=== PATIENT | female | born 1950 | race Hispanic/Latino ===

== ENCOUNTER 2017-05-31 06:35 | Day surgery (SDC) | payer BC ==
[2017-05-22 11:35] VITALS: BMI 32.6
[2017-05-31 07:24] LABS: BASO # 0.03 K/mm3 (0.0-2.0); BASO % 0.3 % (0.0-3.0); EOS # 0.2 (0.0-0.7); EOS % 2.4 % (1.5-5.0); GRAN # 5.61 (1.4-6.5); GRAN % 64.1 % (50.0-68.0); HEMOGLOBIN 13.4 g/dL (12.0-16.0); LYMPH # 2.3 (1.2-3.4); LYMPH % 25.7 % (22.0-35.0); MEAN CELL VOLUME 85.6 fl (80.0-105.0); MEAN CORPUSCULAR HEMOGLOBIN 28.9 pg (25.0-35.0); MEAN CORPUSCULAR HGB CONC 33.8 g/dl (31.0-37.0); MEAN PLATELET VOLUME 9.8 fl (7.0-11.0); MONO # 0.7 (0.1-0.6); MONO % 7.5 % (1.0-6.0); RBC 4.64 10^6/uL (3.5-6.1); RED CELL DISTRIBUTION WIDTH 13.1 % (11.5-14.5); WHITE BLOOD COUNT 8.8 10^3/ul (4.5-11.0)
[2017-05-31 07:30] LABS: INR 1.09 (0.93-1.08)
[2017-05-31] MEDS ORDERED: Lidocaine 2% Inj (20ml) ONE (07:34)
[2017-05-31 07:35] LABS: BLOOD UREA NITROGEN 17 mg/dL (7-21); CALCIUM 9.8 mg/dL (8.4-10.5); GFR AFRICAN-AMERICAN > 60; GFR NON-AFRICAN AMERICAN > 60
[2017-05-31] MEDS ORDERED: Midazolam 2 MG/2 ML VIAL ONE ×3 (07:35→10:34)
[2017-05-31] MEDS ORDERED: Iodixanol 320 MG/ML 200 ML BOTTLE IV ONE (07:35)
[2017-05-31] MEDS ORDERED: HEPARIN SODIUM/NS 2,000 ML IV ONE (07:35)
[2017-05-31] MEDS ORDERED: Iodixanol 320 MG/ML 100 ML BOTTLE IV ONE (07:35)
[2017-05-31] MEDS ORDERED: Iohexol 350mgl/ml 50 ML ONE (09:34)
[2017-05-31] MEDS ORDERED: Sodium Chloride 0.9% 1,000 ML IV SCH (11:30)
[2017-05-31] MEDS: Insulin Reg-MEDIUM-Coverage SC SCH ×3 (12:59→22:42)
--- NOTE | 2017-05-31 13:08 | CARDCATH ---
PROCEDURE DATE: 05/31/2017 HISTORY: The patient is a 66-year-old woman who presents with angina. A stress test was abnormal. Her cardiac risk factors include hypertension, hypercholesterolemia, and diabetes mellitus. There is a strong family history for CAD as well. PROCEDURES: Left heart catheterization with coronary arteriography, left ventriculogram followed by PTCA and stent of two lesions in the LAD as well as PTCA of a septal technical support associate. The right femoral artery was cannulated with a 6-American sheath. I performed moderate sedation which included the presence of an independent trained observer that assisted in monitoring the patient's level of consciousness and physiologic status. After administration of fentanyl and Versed, my intra-service time was greater than 30 minutes. FINDINGS: The findings on catheterization revealed a left ventricle that contracted normally. Estimated ejection fraction is 50%. Her coronary anatomy revealed a right dominant circulation. The RCA revealed a 70-80% stenosis in the proximal portion, followed by 80-90% stenosis in the septal technical support associate. The left main artery was unremarkable. The LAD revealed multiple critical lesions including a long 70% stenosis in the midportion, a 90% stenoses in the apex as well as diffuse disease throughout the vessel. The first diagonal vessel was subtotally occluded. The second diagonal vessel revealed a 80-90% stenosis in its proximal portion. The septal technical support associate revealed a 90% stenosis in its proximal portion. The circumflex artery and obtuse marginal branch revealed diffuse atherosclerosis without critical lesions. The patient was started on intravenous Angiomax. On the fluoroscopic guide, the guiding catheter was placed in the ostium of the left main artery. An 0.014 ATW wire was used to cross the multiple lesions in the LAD. A 2.0 balloon was utilized to pre-dilate the lesions. A 2.25 x 12 mm drug-eluting stent x2 were placed in the distal portion of the LAD. A 2.5 x a 15 mm drug-eluting stent was placed and deployed in the mid LAD. After balloon deflation removal, repeat coronary arteriography revealed a good result with no residual stenosis and JOSEPH III flow. The wire was then brought back and placed into the septal technical support associate. A 2.0 balloon was utilized to dilate the proximal portion of septal technical support associate. Repeat coronary arteriography revealed improvement of the lesion. No stent was placed. Manual compression will be used to close the femoral artery site. The patient tolerated the procedure well. IMPRESSION: In summary, the procedure revealed: 1. Multivessel coronary artery disease. 2. Successful percutaneous transluminal coronary angioplasty and stent of multiple lesions in the left anterior descending artery with drug-eluting stents. 3. Percutaneous transluminal coronary angioplasty of septal technical support associate with improvement of the lesion. 4. Left ventricular function is preserved. PLAN: Given these findings, the patient will need to remain on aspirin and Plavix with Plavix for at least a year and undergo a strict cardiac risk reduction program. We will bring the patient back in 1 week for PTCA and stent of two lesions in the RCA. Andi Pearce MD
--- NOTE | 2017-05-31 13:19 | HP ---
HISTORY OF PRESENT ILLNESS: The patient is a 66 year old woman with a past medical history of hypertension and noninsulin dependent diabetes mellitus who presented for electively scheduled cardiac catheterization after undergoing an abnormal nuclear stress test which was performed due to an abnormal EKG as part of a preoperative clearance for ophthalmologic surgery. The patient was evaluated by her PMD for preoperative clearance prior to ophthalmologic surgery secondary to right eye macular hemorrhage and was found to have an abnormal EKG. She was referred to Dr. Pearce for nuclear stress testing and had an abnormal study demonstrating reversible anterior/anteroseptal defects suspicious of ischemia. As such she was scheduled for cardiac catheterization which disclosed multivessel disease. She underwent successful stenting of the LAD lesions and was subsequently transferred to the telemetry estevez for continued postcardiac catheterization care. PAST MEDICAL HISTORY: As per HPI, also anxiety disorder. PAST SURGICAL HISTORY: Right hammertoe repair and right toe amputation. ALLERGIES: NO KNOWN DRUG ALLERGIES. MEDICATIONS: Glipizide 5 mg p.o. daily. FAMILY HISTORY: Noncontributory. SOCIAL HISTORY: The patient denies any toxic habits. REVIEW OF SYSTEMS: Negative for chest pain, palpitation, exertional dyspnea, orthopnea, claudication, or lower extremity edema. PHYSICAL EXAMINATION: VITAL SIGNS: Temperature 97, pulse 100, blood pressure 146/82, respiratory rate 20, and oxygen saturation 97% on room air. GENERAL: No apparent distress. HEENT: PERRLA. EOMI. No scleral icterus. No conjunctival pallor. NECK: No JVD. No bruits. LUNGS: Clear to auscultation. CARDIOVASCULAR: Regular rate and rhythm. Normal S1 and S2. ABDOMEN: Normoactive bowel sounds. Soft, nontender, and nondistended. EXTREMITIES: No edema. Cardiac catheterization site appears clean, dry, and intact with no hematoma or femoral bruits. NEUROLOGIC: Awake, alert, and oriented x3. No focal motor deficits. LABORATORY DATA: CBC reviewed and unremarkable. CMP reviewed and unremarkable. ASSESSMENT: The patient is a 66 year old woman with hypertension and noninsulin dependent diabetes mellitus who presented for electively scheduled cardiac catheterization after undergoing abnormal nuclear stress test which was obtained as part of a preoperative workup for scheduled ophthalmologic surgery after she was noted to have an abnormal EKG who is now s/p PCI with DANILO stent placement to the LAD lesions. PLAN: 1. Multivessel CAD s/p PCI with DANILO stent placement. Input from Dr. Pearce noted and greatly appreciated. Continue with postcardiac catheterization care as per Dr. Pearce. The patient will return for staged PTCA of the remaining lesions. She will likely need to enroll in a cardiac risk reduction program. Continue ASA 81 mg p.o. daily, Lipitor 40 mg p.o. daily, Plavix 75 mg p.o. daily and Lopressor 25 mg p.o.b.i.d. 2. Hypertension. Continue metoprolol 25 mg b.i.d. 3. Noninsulin dependent diabetes mellitus. We will start medium dose insulin sliding scale. The patient is on Glipizide 5 mg p.o. daily at home however we will hold this given that she is status post cardiac catheterization and we want to minimize the risks of hypoglycemia which may be precipitated in the setting of potential contrast nephropathy and concurrent use of oral glycemic agents. We will start the patient on medium dose insulin sliding scale and monitor fingerstick before meals and at bedtime. 4. Prophylaxis. GI prophylaxis is not indicated as the patient is eating. Continue with SCDs for DVT prophylaxis. CODE STATUS: Full Code. Atul Mckeon MD MTDMaria Teresa
--- NOTE | 2017-05-31 16:56 | CARD ---
APPROVED REPORT EKG Measurement Heart [id number] <Conclusion> Normal sinus rhythm Nonspecific ST and T wave abnormality Prolonged QT Abnormal ECG
--- NOTE | 2017-05-31 17:06 | CARD ---
APPROVED REPORT EKG Measurement Heart [id number] FL [id number] <Conclusion> Normal sinus rhythm Inferior infarct, age undetermined Anterior infarct, age undetermined Abnormal ECG
[2017-05-31] MEDS: PrednisoLONE 1% Opht Susp(5 ml) OD SCH ×2 (17:49→22:37)
[2017-05-31] MEDS: CYCLOPENTOLATE 1% OD SCH (17:50)
[2017-05-31] MEDS: Bacitracin Ointment 30 GM TUBE TOP SCH (17:51)
[2017-05-31] MEDS ORDERED: PREDNISOLONE AC 1% OD SCH (18:00)
[2017-06-01 06:11] VITALS: RESP 19; TEMP 98.7; O2SAT 98
[2017-06-01 06:19] LABS: BASO # 0.01 K/mm3 (0.0-2.0); BASO % 0.1 % (0.0-3.0); EOS # 0.1 (0.0-0.7); EOS % 1.2 % (1.5-5.0); GRAN # 6.91 (1.4-6.5); GRAN % 71.9 % (50.0-68.0); HEMOGLOBIN 11.7 g/dL (12.0-16.0); LYMPH % 20.6 % (22.0-35.0); MEAN CELL VOLUME 88.1 fl (80.0-105.0); MEAN CORPUSCULAR HEMOGLOBIN 28.9 pg (25.0-35.0); MEAN CORPUSCULAR HGB CONC 32.8 g/dl (31.0-37.0); MEAN PLATELET VOLUME 10.1 fl (7.0-11.0); MONO # 0.6 (0.1-0.6); MONO % 6.2 % (1.0-6.0); RBC 4.05 10^6/uL (3.5-6.1); RED CELL DISTRIBUTION WIDTH 13.4 % (11.5-14.5); WHITE BLOOD COUNT 9.6 10^3/ul (4.5-11.0)
[2017-06-01 06:39] LABS: BLOOD UREA NITROGEN 22 mg/dL (7-21); CALCIUM 8.9 mg/dL (8.4-10.5); GFR AFRICAN-AMERICAN > 60; GFR NON-AFRICAN AMERICAN > 60
[2017-06-01] MEDS: Insulin Reg-MEDIUM-Coverage SC SCH (08:05)
[2017-06-01] MEDS: Bacitracin Ointment 30 GM TUBE TOP SCH (09:45)
[2017-06-01] MEDS: PrednisoLONE 1% Opht Susp(5 ml) OD SCH (09:45)
--- NOTE | 2017-06-01 09:47 | PN ---
SUBJECTIVE: The patient was seen and examined at bedside on the telemetry estevez. No acute events overnight. She remains afebrile, hemodynamically stable and chest pain free s/p her cardiac catheterization with stent placement. This morning she feels well, offers no complaints and is looking forward to going home. OBJECTIVE: VITAL SIGNS: Temperature 98.7, pulse 90, blood pressure 132/64, respiratory rate 18, and oxygen saturations 98% on room air. GENERAL: No apparent distress. HEENT: PERRL. EOMI. No scleral icterus. No conjunctival pallor. NECK: No JVD. No bruits. LUNGS: Clear to auscultation. CARDIOVASCULAR: Regular rate and rhythm. Normal S1 and S2. ABDOMEN: Normoactive bowel sounds. Soft, nontender, and nondistended. EXTREMITIES: No edema. Cardiac catheterization site appears clean, dry, and intact with no hematoma or femoral bruits. NEUROLOGIC: Awake, alert, and oriented x3. No focal motor deficits. LABORATORY DATA: CBC reviewed and unremarkable. CMP reviewed and unremarkable. ASSESSMENT: The patient is a 66 year old woman with hypertension and non- insulin-dependant diabetes mellitus who presented for electively scheduled cardiac catheterization after undergoing abnormal nuclear stress test which was obtained as part of a preoperative workup for scheduled ophthalmologic surgery after she was noted to have an abnormal EKG who is now s/p PCI with DANILO stent placement to the LAD lesions. PLAN: 1. Multivessel CAD s/p PCI with DANILO stent placement. Continue with postcatheterization care as per Dr. Pearce. The patient will return to staged PTCA of the remaining lesions. She will likely need to enroll in any cardiac risk reduction program. Continue Aspirin 81 mg p.o. daily, Lipitor 40 mg p.o. daily, Plavix 75 mg p.o. daily, and Lopressor 25 mg p.o. b.i.d. 2. Hypertension. Continue metoprolol 25 mg p.o. b.i.d. 3. Ktf-zhvzqoo-nhstiwqik diabetes mellitus. Continue with medium dose insulin sliding scale for coverage and resume Glipizide 5 mg p.o. daily. 4. Anxiety. Resume Xanax 0.25 mg p.o. daily. 5. Prophylaxis. GI prophylaxis not indicated as this patient is eating. DVT prophylaxis is not indicated as this patient is ambulatory. 6. Disposition: The patient for discharge home today. CODE STATUS: Full status. Atul Mckeon MD MTDD
[2017-06-01 09:51] VITALS: BP 141/69; PULSE 88
[2017-06-01] MEDS: CYCLOPENTOLATE 1% OD SCH (09:52)
--- NOTE | 2017-06-01 10:06 | PN ---
DATE: 06/01/2017 CARDIOLOGY FOLLOWUP SUBJECTIVE: The patient had a Abreu placed yesterday because of her inability to urinate. OBJECTIVE: VITAL SIGNS: Blood pressure is 132/64, heart rate in the 80s. NECK: Negative JVD. LUNGS: Without rales. HEART: S1, S2. EXTREMITIES: Without edema. GROINS: The right groin site has extensive taping on it. LABORATORY DATA: Hemoglobin is 11.7. Chemistries: BUN and creatinine are unremarkable. IMPRESSION: 1. Stable post percutaneous transluminal coronary angioplasty and stent of multiple lesions in the left anterior descending artery. 2. Diabetes mellitus. 3. Hypercholesterolemia. 4. Multivessel coronary artery disease. Given these findings, we will discontinue the Abreu catheter today. We will ambulate the patient and discharge to home. The patient is scheduled for a stage percutaneous transluminal coronary angioplasty of the right coronary artery next week. Andi Pearce MD
--- NOTE | 2017-06-01 13:08 | PN ---
DATE: 06/01/2017 CARDIOLOGY FOLLOWUP NOTE SUBJECTIVE: The patient is chest pain free. PHYSICAL EXAMINATION: VITAL SIGNS: Blood pressure is 132/64 with the heart rate in the 80s. NECK: Negative JVD. LUNGS: Without rales. HEART: Reveals S1 and S2. EXTREMITIES: Without edema. SKIN: The right groin site is stable. There is excoriation of the skin from the . LABORATORY DATA: Hemoglobin is 11.7. Chemistries, BUN and creatinine are unremarkable. IMPRESSION 1. Stable post percutaneous transluminal coronary angioplasty and stent of multiple lesions in the left anterior descending. 2. Coronary artery disease. 3. Diabetes mellitus. 4. Hypercholesterolemia. 5. Obesity. PLAN: Given these findings, the patient's cardiac status is stable for discharge. Ointment has been placed on the skin excoriation. We will DC the Abreu catheter. We will ambulate the patient and discharge today. Andi Pearce MD
--- NOTE | 2017-06-08 02:27 | DS ---
ADMITTING DIAGNOSIS: Unstable angina. DISCHARGE DIAGNOSES: CAD s/p PCI with DANILO stent placement to the LAD. SECONDARY DIAGNOSES: Type 2 diabetes mellitus, hypertension and anxiety. CONSULTATIONS: Dr. Pearce (Cardiology). IMAGING STUDIES: None. PROCEDURES: Cardiac catheterization which demonstrated multivessel CAD with placement of DANILO to LAD and septal hand button splitter. HISTORY OF PRESENT ILLNESS: The patient is a 66 year old woman with past medical history of hypertension and [id number] diabetes mellitus who presented for electively scheduled cardiac catheterization after undergoing an abnormal nuclear stress test which was performed due to an abnormal EKG as part of a preoperative clearance for ophthalmologic surgery. The patient was evaluated by her PMD for preop clearance prior to her scheduled ophthalmologic surgery for repair of right eye macular hemorrhage, during which time she was found to have an abnormal EKG. She was referred to Dr. Pearce for nuclear stress testing and had an abnormal study demonstrating reversible anterior/anteroseptal defect suspicious for ischemia. She was subsequently scheduled for cardiac catheterization which demonstrating multivessel disease. She underwent successful stenting of the LAD lesions and was transferred to the telemetry estevez for postcardiac catheterization care. HOSPITAL COURSE: Her postprocedure course was uncomplicated and no complications were noted. She remained afebrile, hemodynamically stable and chest pain free over the course of the following 24 hours and the following day she was ambulating around the telemetry estevez with no cardiopulmonary symptoms. After evaluation by Dr. Pearce, she was cleared for discharge to home. CONDITION: Good, improved. DISPOSITION: Home. DISCHARGE MEDICATIONS: Aspirin 81 mg p.o. daily, Plavix 75 mg p.o. daily, Lipitor 40 mg p.o. daily, Metoprolol 25 mg p.o. b.i.d., Glipizide 5 mg p.o. daily and Xanax 0.25 mg p.o. daily. DISCHARGE INSTRUCTIONS: The patient was advised to adhere to postcardiac catheterization instructions as per Dr. Pearce. The patient was also advised that if she develops any bleeding , edema, erythema or discomfort at a cardiac catheterization site to present to her PMD or to the nearest ED immediately. She was also advised that if she develops any chest pain, palpitations or dyspnea to present to her PMD or to the nearest ED immediately. FOLLOWUP: The patient is to follow up with her PMD within 1 week of discharge. The patient is to follow up with Dr. Pearce as scheduled. Atul Mckeon MD [facility]
== END 2017-06-01 12:16 | disposition home or self-care (01) ==
LOC: CATH 06:35 → 2RSO 11:49 → UNDOADMIN 11:49 → UNDODISIN 06-01 12:14 → CATH 06-01 12:16
PROVIDERS: ATTEND Internal Medicine Cardiovascular Disease
DX: I25.110 Atherosclerotic heart disease of native coronary artery with unstable angina pectoris (principal); E11.9 Type 2 diabetes mellitus without complications; E66.9 Obesity, unspecified; E78.00 Pure hypercholesterolemia, unspecified; Z95.5 Presence of coronary angioplasty implant and graft; R94.39 Abnormal result of other cardiovascular function study; I10 Essential (primary) hypertension; Z68.33 Body mass index [BMI] 33.0-33.9, adult
CPT/HCPCS: 36415 ×2; 80048 ×2; 82948 ×2; 85025 ×2; 85610; 85730; 86850; 86900; 93005; 93458; 99152; 99153; C1725; C1769 ×2; C1874 ×2; C1887; C2629; C9600; J0360; J0583; J1644; J2250; J3010; J7040 ×2; Q9967 ×2

== ENCOUNTER 2017-06-07 06:11 | Day surgery (SDC) | payer BC ==
[2017-05-22 11:35] VITALS: BMI 32.6
[2017-06-07] MEDS ORDERED: Iodixanol 320 MG/ML 200 ML BOTTLE IV ONE (06:51)
[2017-06-07] MEDS ORDERED: Phenylephrine 10 mg/ml Inj ONE (06:51)
[2017-06-07] MEDS ORDERED: Lidocaine 2% Inj (20ml) ONE (06:51)
[2017-06-07] MEDS ORDERED: Iohexol 350mgl/ml 50 ML ONE (06:51)
[2017-06-07] MEDS ORDERED: Nitroglycerin 50mg in D5W 0 MG/0 ML BOTTLE IV ONE (06:51)
[2017-06-07] MEDS ORDERED: Iodixanol 320 MG/ML 100 ML BOTTLE IV ONE (06:51)
[2017-06-07] MEDS ORDERED: HEPARIN SODIUM/NS 2,000 ML IV ONE (06:51)
[2017-06-07 07:01] LABS: BASO # 0.03 K/mm3 (0.0-2.0); BASO % 0.4 % (0.0-3.0); EOS # 0.3 (0.0-0.7); EOS % 3.7 % (1.5-5.0); GRAN # 5.32 (1.4-6.5); GRAN % 67.1 % (50.0-68.0); HEMOGLOBIN 12.7 g/dL (12.0-16.0); LYMPH # 1.7 (1.2-3.4); LYMPH % 20.9 % (22.0-35.0); MEAN CELL VOLUME 86.6 fl (80.0-105.0); MEAN CORPUSCULAR HEMOGLOBIN 29.8 pg (25.0-35.0); MEAN CORPUSCULAR HGB CONC 34.4 g/dl (31.0-37.0); MEAN PLATELET VOLUME 9.8 fl (7.0-11.0); MONO # 0.6 (0.1-0.6); MONO % 7.9 % (1.0-6.0); RBC 4.26 10^6/uL (3.5-6.1); RED CELL DISTRIBUTION WIDTH 12.9 % (11.5-14.5); WHITE BLOOD COUNT 7.9 10^3/ul (4.5-11.0)
[2017-06-07 07:11] LABS: BLOOD UREA NITROGEN 18 mg/dL (7-21); CALCIUM 9.6 mg/dL (8.4-10.5); GFR AFRICAN-AMERICAN > 60; GFR NON-AFRICAN AMERICAN > 60; HDL CHOLESTEROL 38 mg/dL (29-60)
[2017-06-07 07:20] LABS: INR 1.11 (0.93-1.08); PROTHROMBIN TIME 12.2 SECONDS (9.4-12.5)
[2017-06-07 07:21] LABS: LDL CHOLESTEROL 74 mg/dL (0-129)
[2017-06-07] MEDS ORDERED: Midazolam 2 MG/2 ML VIAL ONE (08:08)
[2017-06-07] MEDS ORDERED: Sodium Chloride 0.9% 1,000 ML IV SCH (09:15)
[2017-06-07 10:47] LABS: BLOOD UREA NITROGEN 17 mg/dL (7-21); CALCIUM 9.2 mg/dL (8.4-10.5); GFR AFRICAN-AMERICAN > 60; GFR NON-AFRICAN AMERICAN > 60
[2017-06-07] MEDS ORDERED: Bacitracin 500 Units/gm Oint Foilpak UD ONE (11:30)
[2017-06-07] MEDS ORDERED: TraMADol/Apap 37.5/325 mg Tab PO STA (13:05)
--- NOTE | 2017-06-07 15:07 | CARD ---
APPROVED REPORT EKG Measurement Heart [id number] [place] [id number] [id number] <Conclusion> Normal sinus rhythm T wave abnormality, consider lateral ischemia Abnormal ECG
--- NOTE | 2017-06-07 15:15 | CARDCATH ---
PROCEDURE DATE: 06/07/2017 CARDIAC CATHETERIZATION AND PTCA HISTORY: The patient is a 66-year-old woman who presents for PTCA of her RCA. The patient has a documented multivessel CAD and she underwent of multiple stents placed approximately 1 week ago and presents for stage PTCA of the RCA. The patient's cardiac risk factors includes hypertension, diabetes mellitus, hypercholesterolemia, sedentary lifestyle, as well as obesity. PROCEDURES: Coronary arteriography followed by PTCA and stent of 3 lesions in the RCA with drug-eluting stents. The left femoral artery was cannulated with a 6-Japanese sheath. There were no complications. I performed moderate sedation, which included the presence of an independent trained observer that assisted in monitoring the patient's level of consciousness and physiologic status. After administration of Versed and fentanyl, my intra-service time was 30 minutes. The findings on catheterization revealed a right dominant circulation. The RCA revealed a 70% stenoses in the proximal portion, 80% stenosis in the mid RCA, as well as 90% stenosis in the PDA. The left main artery was unremarkable. The were 3 stents placed in the LAD. The mid LAD stent was patent and provided good antegrade flow. The distal LAD stent was patent and provided good antegrade flow. The apical stent that was placed was occluded. There was no restriction of flow down the arteries. The diagonal vessels revealed were diffusely diseased and small vessel. The patient was started on intravenous Angiomax. The PRU measurement was performed. The patient is reactive to Plavix. Under fluoroscopic guide, the guiding catheter was placed in the ostium of the RCA. An 0.014 ATW wire was used across the 3 lesions. A 2.0 balloon was utilized to dilate the PDA lesion. A 2.25 x 12 mm drug-eluting stent was placed in the PDA, a 3.5 x 12 mm drug-eluting stent was placed and deployed in the mid RCA lesion. A 4.0 x 12 mm drug-eluting stent was placed in the proximal lesion. Repeat coronary arteriography revealed an excellent result with no residual stenosis and JOSEPH III flow. Manual compression was used to close the left femoral artery site. The patient tolerated the procedure well. In summary, the procedure was successful with PTCA and stent of 3 lesions in the RCA with drug-eluting stents. Cardiac catheterization revealed patent stents in the LAD x2 with an occluded stent in the distal apical portion of the LAD, which was diffusely diseased vessel and small in nature. PRU measurement revealed a the patient is sensitive to Plavix. Given these findings, the patient will need to remain on aspirin indefinitely and Plavix for at least a year and undergo a strict cardiac risk reduction program. I have discussed this with the family and enrolled him in a cardiac risk reduction program. Andi Pearce MD
[2017-06-07 17:39] VITALS: RESP 18
--- NOTE | 2017-06-07 19:37 | HP ---
HISTORY OF PRESENT ILLNESS: The patient is a 66 year old woman with hypertension, dry-vyyaoch-pnqjcpehb diabetes mellitus and newly diagnosed multivessel CAD who returned for electively scheduled staged PTCA of the RCA. The patient was taken last week to the cardiac catheterization lab with Dr. Pearce after undergoing an abnormal nuclear stress test as part of a preoperative workup and underwent successful PCI with multiple stent placement to the LAD and septal veterinary hospital attendant lesions. She was scheduled to return for scheduled PTCA of the RCA lesion. The patient was again taken successfully to the cardiac catheterization lab with Dr. Pearce where she underwent successful PCI with DANILO stent placement to the RCA. She was subsequently transferred to the telemetry estevez for continued post-catheterization care. PAST MEDICAL HISTORY: As per HPI, also anxiety disorder. PAST SURGICAL HISTORY: As per HPI, also right hammertoe repair, right toe amputation and repair of right macular hemorrhage. ALLERGIES: NO KNOWN DRUG ALLERGIES. MEDICATIONS: Aspirin 81 mg p.o. daily, Plavix 75 mg p.o. daily, Lipitor 40 mg p.o. daily, Metoprolol 25 mg p.o. b.i.d., Glipizide 5 mg p.o. daily, and Xanax 0.25 mg p.o. daily. FAMILY HISTORY: Noncontributory. SOCIAL HISTORY: The patient denies any toxic habits. REVIEW OF SYSTEMS: A 14-point review of systems is negative except as per HPI. PHYSICAL EXAMINATION: VITAL SIGNS: Temperature 98.1, pulse 65, blood pressure 130/67, respiratory rate 18, and oxygen saturation 100% on room air. GENERAL: No apparent distress. HEENT: PERRL. EOMI. No scleral icterus. No conjunctival pallor. NECK: No JVD. No bruits. LUNGS: Clear to auscultation. CARDIOVASCULAR: Regular rate and rhythm. Normal S1 and S2. ABDOMEN: Normoactive bowel sounds, soft, nontender, and nondistended. EXTREMITIES: No edema. Cardiac catheterization site appears clean, dry, and intact with no hematoma or femoral bruits. NEUROLOGIC: Awake, alert, and oriented x3. No focal motor deficits. LABORATORY DATA: CBC reviewed and unremarkable. CMP reviewed and unremarkable. ASSESSMENT: The patient is a 66 year old woman with hypertension, non-insulin- dependent diabetes mellitus and newly diagnosed multivessel CAD who returned for electively scheduled staged PTCA of the RCA who is now s/p PCI with DANILO stent placement to the RCA. PLAN: 1. Multivessel CAD s/p PCI with DANILO stent placement. Input from Dr. Pearce noted and greatly appreciated. Continue postcardiac catheterization care as per Dr. Pearce. Continue Aspirin 81 mg p.o. daily, Lipitor 40 mg p.o. daily, Plavix 75 mg p.o. daily and Metoprolol 25 mg p.o. b.i.d. 2. Hypertension. Continue Metoprolol 25 mg p.o. b.i.d. 3. Jco-ollqwok-nfhlzlsjl diabetes mellitus. Resume Glipizide 5 mg p.o. daily. 4. Anxiety disorder. Resume Xanax 0.25 mg p.o. daily. 5. Prophylaxis. GI prophylaxis is not indicated as the patient is eating. Continue with SCDs for DVT prophylaxis. CODE STATUS: Full Code. Atul Mckeon MD MTDD
[2017-06-07] MEDS ORDERED: DiphenhydrAMINE 50 mg/ml Inj IVP STA (23:27)
--- NOTE | 2017-06-07 23:41 | CP.PCM.PN ---
Subjective - Date & Time of Evaluation Date of Evaluation: 06/07/17 Time of Evaluation: 23:38 - Subjective Subjective: Patient was seen for itching and rash. Denies wheezing, sob. Has no history of allergy to medications, food or any other substance. States that before the procedure some lotion was applied to skin wearing latex glove, latex glove may have anything to do with itching. Did not receive any unusual food or medications. Pertinent medical record was reviewed. This 66 year old white woman was admitted for PTCA of RCA. Has PMH of HTN,NIDDM,CAD, anxiety, hammer toe repair, right toe amputation, repair of macular hemorrhage. Objective - Vital Signs/Intake and Output Vital Signs (last 24 hours): Temp Pulse Resp BP Pulse Ox 97.3 F L 74 18 120/62 100 06/07/17 17:39 06/07/17 18:00 06/07/17 17:39 06/07/17 17:39 06/07/17 07:00 - Medications Medications: Current Medications Alprazolam (Xanax) 0.25 mg PO DAILY [facility] PRN Reason: Protocol Stop: 06/15/17 10:01 Aspirin (Ecotrin) 81 mg PO DAILY [facility] Last Admin: 06/07/17 09:38 Dose: Not Given Atorvastatin Calcium (Lipitor) 40 mg PO DIN [facility] Last Admin: 06/07/17 17:29 Dose: 40 mg Clopidogrel Bisulfate (Plavix) 75 mg PO DAILY [facility] Last Admin: 06/07/17 09:39 Dose: Not Given Glipizide (Glucotrol Xl) 5 mg PO DAILY [facility] Metoprolol Tartrate (Lopressor) 25 mg PO BID [facility] Last Admin: 06/07/17 17:29 Dose: 25 mg - Labs Labs: 06/07/17 06:35 06/07/17 10:15 PT 12.2 SECONDS (9.4-12.5) 06/07/17 06:35 INR 1.11 (0.93-1.08) H 06/07/17 06:35 APTT 27.0 Seconds (25.1-36.5) 06/07/17 06:35 Most Recent Lab Values WBC 7.9 10^3/ul (4.5-11.0) 06/07/17 06:35 RBC 4.26 10^6/uL (3.5-6.1) 06/07/17 06:35 Hgb 12.7 g/dL (12.0-16.0) 06/07/17 06:35 Hct 36.9 % (36.0-48.0) 06/07/17 06:35 MCV 86.6 fl (80.0-105.0) 06/07/17 06:35 MCH 29.8 pg (25.0-35.0) 06/07/17 06:35 MCHC 34.4 g/dl (31.0-37.0) 06/07/17 06:35 RDW 12.9 % (11.5-14.5) 06/07/17 06:35 Plt Count 218 10^3/uL (120.0-450.0) 06/07/17 06:35 MPV 9.8 fl (7.0-11.0) 06/07/17 06:35 Gran % 67.1 % (50.0-68.0) 06/07/17 06:35 Lymph % (Auto) 20.9 % (22.0-35.0) L 06/07/17 06:35 [place] % (Auto) 7.9 % (1.0-6.0) H 06/07/17 06:35 Eos % (Auto) 3.7 % (1.5-5.0) 06/07/17 06:35 Baso % (Auto) 0.4 % (0.0-3.0) 06/07/17 06:35 Gran # 5.32 (1.4-6.5) 06/07/17 06:35 Lymph # 1.7 (1.2-3.4) 06/07/17 06:35 [place] # 0.6 (0.1-0.6) 06/07/17 06:35 Eos # 0.3 (0.0-0.7) 06/07/17 06:35 Baso # 0.03 K/mm3 (0.0-2.0) 06/07/17 06:35 PT 12.2 SECONDS (9.4-12.5) 06/07/17 06:35 INR 1.11 (0.93-1.08) H 06/07/17 06:35 APTT 27.0 Seconds (25.1-36.5) 06/07/17 06:35 Sodium 141 mmol/L (132-148) 06/07/17 10:15 Potassium 5.1 mmol/L (3.6-5.0) H 06/07/17 10:15 Chloride 103 mmol/L (98-107) 06/07/17 10:15 Carbon Dioxide 32 mmol/L (21-33) 06/07/17 10:15 Anion Gap 12 (10-20) 06/07/17 10:15 BUN 17 mg/dL (7-21) 06/07/17 10:15 Creatinine 0.7 mg/dl (0.7-1.2) 06/07/17 10:15 Est GFR ( Amer) > 60 06/07/17 10:15 Est GFR (Non-Af Amer) > 60 06/07/17 10:15 Random Glucose 203 mg/dL (70-110) H 06/07/17 10:15 Calcium 9.2 mg/dL (8.4-10.5) 06/07/17 10:15 Triglycerides 122 mg/dL (35-160) 06/07/17 06:35 Cholesterol 142 mg/dL (130-200) 06/07/17 06:35 LDL Cholesterol Direct 74 mg/dL (0-129) 06/07/17 06:35 HDL Cholesterol 38 mg/dL (29-60) 06/07/17 06:35 Blood Type A POSITIVE 06/07/17 06:35 Antibody Screen Negative 06/07/17 06:35 BBK History Checked Patient has bt 06/07/17 06:35 - Constitutional Appears: Well, No Acute Distress - Head Exam Head Exam: ATRAUMATIC, NORMAL INSPECTION, NORMOCEPHALIC - Eye Exam Eye Exam: Normal appearance - ENT Exam ENT Exam: Normal External Ear Exam - Neck Exam Neck Exam: Normal Inspection - Respiratory Exam Respiratory Exam: NORMAL BREATHING PATTERN - Cardiovascular Exam Cardiovascular Exam: absent: JVD - GI/Abdominal Exam GI & Abdominal Exam: absent: Distended - Rectal Exam Rectal Exam: Deferred - Exam Additional comments: Deferred. - Extremities Exam Extremities Exam: Normal Inspection - Back Exam Back Exam: NORMAL INSPECTION - Neurological Exam Neurological Exam: Alert, Awake, Oriented x3 - Psychiatric Exam Psychiatric exam: Normal Affect, Normal Mood - Skin Additional comments: Back , arms, Assessment and Plan - Assessment and Plan (Free Text) Assessment: Itching. Skin rash. CAD. HTN. AIDDM. Anxiety. Plan: Benadryl 25 mg IV stat. Continue present management.
[2017-06-08 05:19] LABS: BASO # 0.02 K/mm3 (0.0-2.0); BASO % 0.2 % (0.0-3.0); EOS # 0.4 (0.0-0.7); EOS % 3.6 % (1.5-5.0); GRAN # 7.25 (1.4-6.5); GRAN % 72.6 % (50.0-68.0); HEMOGLOBIN 11.3 g/dL (12.0-16.0); LYMPH # 1.7 (1.2-3.4); LYMPH % 16.7 % (22.0-35.0); MEAN CORPUSCULAR HEMOGLOBIN 28.9 pg (25.0-35.0); MEAN CORPUSCULAR HGB CONC 32.8 g/dl (31.0-37.0); MEAN PLATELET VOLUME 10.1 fl (7.0-11.0); MONO # 0.7 (0.1-0.6); MONO % 6.9 % (1.0-6.0); RBC 3.91 10^6/uL (3.5-6.1); RED CELL DISTRIBUTION WIDTH 13.2 % (11.5-14.5)
[2017-06-08 06:10] LABS: ALB/GLOB RATIO 1.1 (1.1-1.8); ALBUMIN 3.3 g/dL (3.0-4.8); ALT/SGPT 33 U/L (7-56); AST/SGOT 19 U/L (14-36); BLOOD UREA NITROGEN 20 mg/dL (7-21); CALCIUM 8.8 mg/dL (8.4-10.5); GFR AFRICAN-AMERICAN > 60; GFR NON-AFRICAN AMERICAN > 60
[2017-06-08] MEDS ORDERED: DiphenhydrAMINE 50 mg/ml Inj IVP STA (06:17)
[2017-06-08 06:20] VITALS: BP 127/58; TEMP 97.8; O2SAT 98
--- NOTE | 2017-06-08 09:02 | PN ---
SUBJECTIVE: The patient was seen and examined at bedside on the telemetry estevez. No acute events overnight. She remains afebrile and hemodynamically stable status post her cardiac catheterization with placement of drug-eluting stent to the RCA lesion. This morning she reports a rash to her entire body with pruritus. Reportedly she developed a similar rash, albeit smaller, after her previous catheterization thus raising the suspicion for contrast allergy. She denies dyspnea, stridor, dysphagia or odynophagia. OBJECTIVE: VITAL SIGNS: Temperature 97.8, pulse 81, blood pressure 127/58, respiratory rate 18, and oxygen saturation 98% on room air. GENERAL: No apparent distress. HEENT: PERRL, EOMI. No scleral icterus. No conjunctival pallor. NECK: No JVD, no bruits. LUNGS: Clear to auscultation. CARDIOVASCULAR: Regular rate and rhythm. Normal S1 and S2. ABDOMEN: Normoactive bowel sounds. Soft, nontender, and nondistended. EXTREMITIES: No edema. NEUROLOGIC: Awake, alert, and oriented x3. No focal motor deficits. SKIN: Erythematous raised rash on the patient's torso and extremities. LABORATORY DATA: CBC reviewed and unremarkable. CMP reviewed and unremarkable. ASSESSMENT: The patient is a 66 year old woman with hypertension, non-insulin- dependent diabetes mellitus and newly diagnosed multivessel coronary artery disease who returned for electively scheduled staged PTCA of the RCA who is now status post PCI with DANILO stent placement to the RCA. PLAN: 1. Multivessel CAD s/p PCI with DANILO placement. Continue post catheterization care as per Dr. Pearce. Continue Aspirin 81 mg p.o. daily, Lipitor 40 mg p.o. daily, Plavix 75 mg p.o. daily and Metoprolol 25 mg p.o. b.i.d. 2. Morbilliform rash, consider etiology secondary to IV contrast. The patient received Benadryl overnight. We will administer Solu Medrol 60 mg IV x1. 3. Hypertension: Continue Metoprolol 25 mg p.o. b.i.d. 4. Nlu-fdjdmeq-zefqetefa diabetes mellitus. Continue Glipizide 5 mg p.o. daily. 5. Anxiety disorder: Continue Xanax 0.25 mg p.o. daily. 6. Prophylaxis: GI prophylaxis not indicated as the patient is eating. DVT prophylaxis not indicated as the patient is ambulatory. 7. Disposition: The patient will be discharged to home today. CODE STATUS: FULL CODE. Atul Mckeon MD [facility]INA
[2017-06-08] MEDS ORDERED: GlipiZIDE 5 mg SR Tab PO SCH (10:00)
[2017-06-08 10:20] VITALS: PULSE 80
--- NOTE | 2017-06-08 11:29 | PN ---
DATE: 06/08/2017 CARDIOLOGY FOLLOWUP SUBJECTIVE: The patient is ambulating without symptoms. PHYSICAL EXAMINATION: VITAL SIGNS: Blood pressure 127/58, heart rate in the 80s. NECK: Negative JVD. LUNGS: Without rales. HEART: S1, S2. EXTREMITIES: Without edema. The groin sites diffusely erythematous, no hematoma. No ecchymoses noted. LABORATORY DATA: Hemoglobin is 11.3, white count is 10, glucose is 171. IMPRESSION: 1. Status post percutaneous transluminal coronary angioplasty and stent, multivessels. 2. Coronary artery disease. 3. Diabetes mellitus. 4. Hypercholesterolemia. 5. Hypertension. PLAN: Given these findings, the patient's rash may be secondary to IV contrast. She received Benadryl as well as Solu-Medrol overnight. The patient is doing well. From a cardiac perspective, the patient can be discharged. Followup instructions have been given to the patient. She has been enrolled in cardiac rehab.. Andi Pearce MD
--- NOTE | 2017-06-08 12:22 | CARD ---
APPROVED REPORT EKG Measurement Heart [id number] <Conclusion> Normal sinus rhythm Inferior infarct, age undetermined T wave abnormality, consider lateral ischemia Abnormal ECG
--- NOTE | 2017-06-12 09:50 | DS ---
ADMITTING DIAGNOSIS: Multivessel CAD. DISCHARGE DIAGNOSIS: Multivessel CAD s/p PCI with DANILO stent placement to the RCA. SECONDARY DIAGNOSES: Hypertension, type 2 diabetes mellitus and anxiety disorder. CONSULTATION: Dr. Pearce (Cardiology). PROCEDURES: Cardiac catheterization with DANILO stent placement to the RCA. IMAGING STUDIES: None. HISTORY OF PRESENT ILLNESS: The patient is a 66 year old woman with hypertension noninsulin dependent diabetes mellitus and newly diagnosed multivessel CAD who returned for electively scheduled staged PCTA of the RCA. The patient was taken last week to the cardiac catheterization lab with Dr. Pearce after undergoing an abnormal nuclear stress test as part of a preoperative workup and underwent successful PCI with multiple stent placement to the LAD and septal simplex operator lesions. The patient did well postoperatively and was discharged home with no issues with the plan to return in 1 weeks to pursue remaining RCA lesions. She underwent successful PCI with DANILO stent placement to the RCA lesion and was transferred to the telemetry estevez postprocedure for continued monitoring. HOSPITAL COURSE: Upon admission to the telemetry estevez the patient was monitored closely by the telemetry nurses. There were no postprocedure complications. She remained afebrile, hemodynamically stable and chest pain free over the following 24 hours and the next day she was noted to ambulate around telemetry estevez with no cardiopulmonary symptoms. After evaluation with Dr. Pearce, she was cleared for discharge to home. CONDITION: Good, improved. DISPOSITION: Home. DISCHARGE MEDICATIONS: Aspirin 81 mg p.o. daily, Plavix 75 mg p.o. daily, Lipitor 40 mg p.o. daily, Metoprolol 25 mg p.o. b.i.d., Glipizide 5 mg p.o. daily and Xanax 0.25 mg p.o. daily. DISCHARGE INSTRUCTIONS: The patient was advised to adhere to postcardiac catheterization instructions as per Dr. Pearce. The patient was also advised that if she develops any bleeding , edema, erythema or discomfort at the cardiac catheterization site to present to her PMD or to nearest ED immediately. She was also advised, if she develops any chest pain, palpitation, or dyspnea to present to her PMD or to nearest ED immediately. FOLLOWUP: The patient will follow up with her PMD within 1 week of discharge. The patient is to follow up with Dr. Pearce as scheduled. Atul Mckeon MD [facility]
== END 2017-06-08 13:02 | disposition home or self-care (01) ==
LOC: CATH 06:11 → 2RSO 09:47 → CATH 06-08 13:02
PROVIDERS: ATTEND Internal Medicine Cardiovascular Disease
DX: I25.10 Atherosclerotic heart disease of native coronary artery without angina pectoris (principal); E11.9 Type 2 diabetes mellitus without complications; I10 Essential (primary) hypertension; F41.9 Anxiety disorder, unspecified; R21 Rash and other nonspecific skin eruption; L29.9 Pruritus, unspecified; E78.00 Pure hypercholesterolemia, unspecified; Z79.02 Long term (current) use of antithrombotics/antiplatelets; Z79.82 Long term (current) use of aspirin
CPT/HCPCS: 36415 ×2; 80048; 80053; 80061; 85025 ×2; 85576; 85610; 85730; 86850; 86900; 93005 ×2; 93454; 99152; 99153; C1725; C1769 ×2; C1874 ×3; C1887; C2629; C9600; J0360; J0583; J1200 ×2; J1644; J2250; J2930; J3010; J7030; J7040; Q9967 ×2

== ENCOUNTER 2017-10-24 09:42 | Inpatient (IN) | payer MEDICARE, BC ==
--- NOTE | 2017-10-24 11:00 | RAD ---
HISTORY: Diabetic foot infection COMPARISON: 03/28/2013 FINDINGS: LUNGS: No active pulmonary disease. PLEURA: No significant pleural effusion identified, no pneumothorax apparent. CARDIOVASCULAR: Normal. OSSEOUS STRUCTURES: No significant abnormalities. VISUALIZED UPPER ABDOMEN: Normal. OTHER FINDINGS: None. IMPRESSION: No active disease. No interval pathology noted
--- NOTE | 2017-10-24 11:25 | ED PDOC ---
Arrival/HPI - General Chief Complaint: Lower Extremity Problem/Injury Time Seen by Provider: 10/24/17 10:30 Historian: Patient - History of Present Illness Narrative History of Present Illness (Text): 10/24/17 10:45 Jasmyne King is a 67 year old female, whose past medical history includes diabetes, who presents to the emergency department sent by media strategist Dr. Ji for evaluation of osteomyelitis to the left 4th toe. Patient states that she has been followed by Dr. Ji for a diabetic foot ulcer to the right plantar aspect for months. For the 1.5 weeks, patient noticed redness to her left 4th toe and went to her media strategist for evaluation and was given outpatient antibiotics. Patient states that the redness and swelling to her feet have been worsening. Patient had an MRI performed on both feet, left foot showed suspicion for osteomyelitis to the fourth distal and middle phalanx while the right foot showed lisfranc chopart joint. Patient states that since she had 2 post-operation diabetic shoes on her feet, she fell down stairs last night and now has worsening pain to her left knee and swelling to left foot. Patient denies any headache, dizziness, weakness, chest pain, shortness of breath, abdominal pain, fevers, chills, or any other complaints at this time. Time/Duration: > week Symptom Onset: Gradual Symptom Course: Unchanged Activities at Onset: Light Context: Home Past Medical History - Provider Review Nursing Documentation Reviewed: Yes - Infectious Disease Hx of Infectious Diseases: None - Reproductive Menopause: Yes - Cardiac Hx Hypertension: Yes Hx Pacemaker: No Other/Comment: cardiac stent - Pulmonary Hx Respiratory Disorders: No - Neurological Hx Neurological Disorder: No - Endocrine/Metabolic Hx Diabetes Mellitus Type 2: Yes - Hematological/Oncological Hx Blood Transfusions: No Hx Blood Transfusion Reaction: No - Musculoskeletal/Rheumatological Hx Musculoskeletal Disorders: No - Psychiatric Hx Emotional Abuse: No Hx Physical Abuse: No Hx Substance Use: No - Surgical History Hx Parathyroidectomy: Yes (third metatarsal head and phalanges) - Anesthesia Hx Anesthesia Reactions: No Hx Malignant Hyperthermia: No - Suicidal Assessment Feels Threatened In Home Enviroment: No Family/Social History - Physician Review Nursing Documentation Reviewed: Yes Family/Social History: No Known Family HX Smoking Status: Never Smoked Hx Alcohol Use: No Hx Substance Use: No Allergies/Home Meds Allergies/Adverse Reactions: Allergies No Known Allergies Allergy (Verified 05/22/12 13:46) Home Medications: Home Meds Medication Instructions Recorded Confirmed Alprazolam [Xanax] 0.25 mg PO DAILY PRN 03/28/13 10/24/17 Aspirin [Aspir 81] 81 mg PO QPM 03/28/13 10/24/17 Glipizide [Glipizide Xl] 5 mg PO DAILY 05/22/17 10/24/17 Cinnamon Bark [David Natural 2 tab PO QPM 05/25/17 10/24/17 Cinnamon] Clopidogrel [Plavix] 75 mg PO DAILY 06/02/17 10/24/17 Metoprolol Tartrate [Lopressor] 25 mg PO BID 06/02/17 10/24/17 Carolina D 1 tab PO DAILY 10/24/17 10/24/17 Atorvastatin [Lipitor] 40 mg PO DAILY 10/24/17 10/24/17 Sulfamethoxazole/Trimethoprim 1 each PO BID 10/24/17 10/24/17 [Bactrim Ds Tablet] Review of Systems - Physician Review All systems were reviewed & negative as marked: Yes - Review of Systems Constitutional: absent: Fevers, Night Sweats Eyes: absent: Vision Changes ENT: absent: Hearing Changes Respiratory: absent: SOB, Cough Cardiovascular: absent: Chest Pain Gastrointestinal: absent: Abdominal Pain, Appetite Changes Genitourinary Female: absent: Dysuria Musculoskeletal: Other (Left knee pain and swelling to left foot s/p fall). absent: Arthralgias Skin: absent: Rash Neurological: absent: Headache Endocrine: absent: Diaphoresis, Polyuria Hemo/Lymphatic: absent: Adenopathy Psychiatric: absent: Anxiety, Depression Physical Exam Vital Signs Reviewed: Yes Vital Signs Temp Pulse Resp BP Pulse Ox 10/24/17 14:29 73 16 141/66 100 10/24/17 12:30 72 16 143/66 100 10/24/17 10:11 98.2 F 92 H 18 134/76 100 Temperature: Afebrile Blood Pressure: Normal Pulse: Regular Respiratory Rate: Normal Appearance: Positive for: Well-Appearing, Non-Toxic, Comfortable Pain Distress: None Mental Status: Positive for: Alert and Oriented X 3 - Systems Exam Head: Present: Atraumatic Pupils: Present: PERRL Extroacular Muscles: Present: EOMI Conjunctiva: Present: Normal Mouth: Present: Moist Mucous Membranes Nose (External): Present: Atraumatic Neck: Present: Normal Range of Motion, Trachea Midline. No: MIDLINE TENDERNESS , Paraspinal Tenderness Respiratory/Chest: Present: Clear to Auscultation, Good Air Exchange. No: Respiratory Distress, Accessory Muscle Use, Wheezes, Retracting, Rhonchi Cardiovascular: Present: Regular Rate and Rhythm, Normal S1, S2. No: Murmurs Abdomen: No: Tenderness, Distention, Peritoneal Signs, Rebound, Guarding Genitourinary/Pelvic Exam: Present: Other (Pelvis stable) Back: Present: Normal Inspection, Other (no bruising). No: CVA Tenderness, Midline Tenderness, Paraspinal Tenderness Upper Extremity: Present: Normal ROM, NORMAL PULSES, Capillary Refill < 2s. No : Tenderness, Swelling, Erythema Lower Extremity: Present: Normal ROM, Tenderness (Tenderness over anterior aspect of left knee; No erythema, ecchymosis, or edema. ), Swelling (Swelling, erythema, and warmth to left fourth toe), Deformity (RIGHT FOOT:irregularly shaped quarter-sized ulceration to plantar aspect of right foot; no pirulent discharge or surrounding erythema; LEFT FOOT: Classic Lisfranc deformity of left foot) Neurological: Present: GCS=15, Speech Normal Skin: Present: Warm, Dry, Normal Color, Abrasion (superficial abrasion noted to left elbow; non tender; no erythema, no edema) Psychiatric: Present: Alert, Oriented x 3 Medical Decision Making ED Course and Treatment: 10/24/17 15:04 67-year-old diabetic female presenting today for admission for osteomyelitis of the left fourth toe found on MRI. Patient was sent in by her media strategist CBC within normal limits CMP potassium 4.3 glucose 190 Lactate 1.9 Chest x-ray no infiltrate or effusion X-rays of the left foot: No fracture, osteomyelitis of the left fourth toe Right foot no acute fracture Blood cultures pending Patient was given vancomycin and Zosyn IV pt offered tetanus vaccine; pt refused. Case was discussed with Dr. rodriguez in depth accepts admission All results discussed in depth with the patient all aspects of this case were discussed the attending of record. Impression: Osteomyelitis of the left toe Admit to [facility] - Lab Interpretations Lab Results: 10/24/17 11:34 10/24/17 11:34 Lab Results 10/24/17 11:34: WBC 9.2, RBC 4.69, Hgb 13.0, Hct 38.4, MCV 81.9 D, MCH 27.7, MCHC 33.9, RDW 13.7, Plt Count 229, MPV 10.0, Gran % 74.5 H, Lymph % (Auto) 15.6 L, Gilchrist % (Auto) 7.8 H, Eos % (Auto) 1.7, Baso % (Auto) 0.4, Gran # 6.85 H , Lymph # (Auto) 1.4, Gilchrist # (Auto) 0.7 H, Eos # (Auto) 0.2, Baso # (Auto) 0.04 10/24/17 11:34: Sodium 142, Chloride 103, Potassium 4.3, Carbon Dioxide 25, Anion Gap 19, BUN 22 H, Creatinine 1.0, Est GFR ( Amer) > 60, Est GFR ( Non-Af Amer) 56, Random Glucose 190 H, Calcium 9.2, Total Bilirubin 0.7, AST 26 , ALT 26, Alkaline Phosphatase 163 H D, Total Protein 7.9, Albumin 4.2, Globulin 3.7, Albumin/Globulin Ratio 1.1 10/24/17 11:34: pO2 44, VBG pH 7.30 L, VBG pCO2 55.0, VBG HCO3 27.1, VBG Total CO2 28.8 H, VBG O2 Sat (Calc) 80.8 H, VBG Base Excess -0.3 L, VBG Potassium 7.2 H*, Sodium 135.0, Chloride 103.0, Glucose 193 H, Lactate 1.9, FiO2 21.0, Venous Blood Potassium 7.2 H* 10/24/17 11:34: PT 12.3, INR 1.07, APTT 26.9 - RAD Interpretation Radiology Orders: 10/24/17 10:31 CHEST PORTABLE [RAD] Stat 10/24/17 10:40 FOOT 3 VIEWS BI [RAD] Stat 10/24/17 11:07 KNEE LEFT 2 VIEWS (AP & LAT) [RAD] Stat - Medication Orders Current Medication Orders: Alprazolam (Xanax) 0.25 mg PO BID PRN; Protocol PRN Reason: Anxiety Stop: 10/31/17 12:58 Aspirin (Aspirin Chewable) 81 mg PO DAILY [facility] Atorvastatin Calcium (Lipitor) 40 mg PO DAILY [facility] Clopidogrel Bisulfate (Plavix) 75 mg PO DAILY [facility] Glipizide (Glucotrol Xl) 5 mg PO DAILY [facility] Insulin Human Regular (Humulin R Med) 0 units SC ACHS [facility] PRN Reason: Protocol Metoprolol Tartrate (Lopressor) 25 mg PO BID [facility] Discontinued Medications Vancomycin HCl (Vancomycin 1gm) 1 gm in 250 mls @ 167 mls/hr IVPB STAT STA PRN Reason: Protocol Stop: 10/24/17 13:40 Last Admin: 10/24/17 12:52 Dose: 167 mls/hr eMAR Start Stop Document 10/24/17 12:52 NOLA (Rec: 10/24/17 12:52 NOLA [id number]) Intravenous Solution Start Date 10/24/17 Start Time 12:52 End Date 10/24/17 End time 14:26 Total Infusion Time 94 Piperacillin Sod/Tazobactam Sod (Zosyn 3.375 In Ns 100ml) 100 mls @ 200 mls/hr IVPB STAT STA PRN Reason: Protocol Stop: 10/24/17 12:40 Last Admin: 10/24/17 12:25 Dose: 200 mls/hr eMAR Start Stop Document 10/24/17 12:25 NOLA (Rec: 10/24/17 12:26 NOLA [id number]) Intravenous Solution Start Date 10/24/17 Start Time 12:25 End Date 10/24/17 End time 12:55 Total Infusion Time 30 - Scribe Statement The provider has reviewed the documentation as recorded by the Chavez Moore Provider Scribe Attestation: All medical record entries made by the Germaniballan were at my direction and personally dictated by me. I have reviewed the chart and agree that the record accurately reflects my personal performance of the history, physical exam, medical decision making, and the department course for this patient. I have also personally directed, reviewed, and agree with the discharge instructions and disposition. Disposition/Present on Arrival - Present on Arrival Any Indicators Present on Arrival: No History of DVT/PE: No History of Uncontrolled Diabetes: No Urinary Catheter: No History of Decub. Ulcer: No - Disposition Have Diagnosis and Disposition been Completed?: Yes Diagnosis: Osteomyelitis of toe, Diabetes Disposition: HOSPITALIZED Disposition Time: 11:00 Patient Plan: Admission Patient Problems: Current Active Problems Problem Status Onset Diabetes Acute Osteomyelitis of toe Acute Condition: FAIR
[2017-10-24 11:39] LABS: VENOUS BLOOD GAS BASE EXCESS -0.3 mmol/L (0.0-2.0); VENOUS BLOOD GAS PO2 44 mm/Hg (30-55)
[2017-10-24 11:44] LABS: BASO # 0.04 K/mm3 (0.0-2.0); BASO % 0.4 % (0.0-3.0); EOS # 0.2 (0.0-0.7); EOS % 1.7 % (1.5-5.0); GRAN # 6.85 (1.4-6.5); GRAN % 74.5 % (50.0-68.0); LYMPH # 1.4 (1.2-3.4); LYMPH % 15.6 % (22.0-35.0); MEAN CELL VOLUME 81.9 fl (80.0-105.0); MEAN CORPUSCULAR HEMOGLOBIN 27.7 pg (25.0-35.0); MEAN CORPUSCULAR HGB CONC 33.9 g/dl (31.0-37.0); MONO # 0.7 (0.1-0.6); MONO % 7.8 % (1.0-6.0); RBC 4.69 10^6/uL (3.5-6.1); RED CELL DISTRIBUTION WIDTH 13.7 % (11.5-14.5); WHITE BLOOD COUNT 9.2 10^3/ul (4.5-11.0)
[2017-10-24 11:47] LABS: ALB/GLOB RATIO 1.1 (1.1-1.8); ALBUMIN 4.2 g/dL (3.0-4.8); ALT/SGPT 26 U/L (7-56); AST/SGOT 26 U/L (14-36); BLOOD UREA NITROGEN 22 mg/dL (7-21); CALCIUM 9.2 mg/dL (8.4-10.5); GFR AFRICAN-AMERICAN > 60; GFR NON-AFRICAN AMERICAN 56
[2017-10-24 11:58] LABS: INR 1.07 (0.93-1.08); PARTIAL THROMBOPLASTIN TIME 26.9 Seconds (25.1-36.5); PROTHROMBIN TIME 12.3 SECONDS (9.4-12.5)
[2017-10-24] MEDS ORDERED: Piperacillin/Tazobact 3.375 gm 100 ML IVPB STA (12:11)
[2017-10-24] MEDS ORDERED: Vancomycin 1gm in NS 250ml 1 GM/250 ML BAG IVPB STA (12:11)
--- NOTE | 2017-10-24 12:54 | CARD ---
APPROVED REPORT EKG Measurement Heart [id number] <Conclusion> Normal sinus rhythm Prolonged QT Abnormal ECG
--- NOTE | 2017-10-24 13:41 | RAD ---
PROCEDURE: Left Knee Radiographs. HISTORY: Pain. COMPARISON: None. FINDINGS: BONES: Normal. No fracture. JOINTS: Normal. No osteoarthritis. JOINT EFFUSION: None. OTHER FINDINGS: None. IMPRESSION: Normal radiographs of the left knee.
--- NOTE | 2017-10-24 13:47 | RAD ---
PROCEDURE: Bilateral Feet Radiographs. HISTORY: fall, left foot pain. also left toe infection COMPARISON: None. 04/15/2013 FINDINGS: BONES: Right Foot: Postoperative changes with bony fusion between the 2nd and 3rd metatarsals. 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 Left Foot: There is bony destruction of the 4th distal phalanx consistent with osteomyelitis JOINTS: Right Foot: Normal. No osteoarthritis. Left Foot: Normal. No osteoarthritis. SOFT TISSUES: Right Foot: Normal. Left Foot: Normal. OTHER FINDINGS: None. IMPRESSION: Left foot There is bony destruction of the 4th distal phalanx consistent with osteomyelitis
[2017-10-24] MEDS: Insulin Reg-MEDIUM-Coverage SC SCH ×2 (16:42→22:00)
[2017-10-24] MEDS ORDERED: Pneumococcal 23-Valent Vaccine IM ONE (19:11)
[2017-10-24 19:12] VITALS: BMI 31.9
--- NOTE | 2017-10-25 00:02 | HP ---
HISTORY OF PRESENT ILLNESS: The patient is a 67 year old woman with a past medical history of NIDDM who was sent to the ED by Dr. Ji (Podiatry) for evaluation of a chronic, nonhealing left foot ulcer with an outpatient x-ray demonstrating findings concerning for osteomyelitis. The patient has been closely followed by Dr. Ji for continued management of diabetic foot ulcers and over the course of the past 2 weeks she was found to have increasing erythema and purulent discharge from her left 4th toe that did not respond to outpatient antimicrobial therapy consisting of Bactrim. As such, she was sent for an x-ray which showed degenerative changes suggestive of osteomyelitis. A subsequent MRI showed edema and degenerative changes to the left 4th DIP and thus she was advised to present to the ED for intravenous antimicrobials and possible amputation. Apart from pain at her affected foot, she denies fevers, chills, rigors or any constitutional symptoms. PAST MEDICAL HISTORY: As per HPI, also hypertension, CAD s/p PCI with stent placement, hyperlipidemia and anxiety disorder. PAST SURGICAL HISTORY: Right hammertoe repair, right toe amputation and repair of right macular hemorrhage. ALLERGIES: NKDA. MEDICATIONS: Aspirin 81 mg p.o. daily, Plavix 75 mg p.o. daily, Lipitor 40 mg p.o. daily, Metoprolol 25 mg p.o. b.i.d., Glipizide 5 mg p.o. daily and Xanax 0.25 mg p.o. daily. FAMILY HISTORY: Noncontributory. SOCIAL HISTORY: The patient denies any toxic habits. REVIEW OF SYSTEMS: A 14-point review of systems is negative except as per HPI. PHYSICAL EXAMINATION: VITAL SIGNS: Temperature 98.2, pulse 73, blood pressure 141/66, respiratory rate 18, oxygen saturation 100% on room air. GENERAL: No apparent distress. HEENT: PERRL. EOMI. No scleral icterus. No conjunctival pallor. NECK: No JVD. No bruit. LUNGS: Clear to auscultation. CARDIOVASCULAR: Regular rate and rhythm. Normal S1 and S2. ABDOMEN: Normoactive bowel sounds. Soft, nontender, nondistended. EXTREMITIES: No edema. Left foot with erythema and scant discharge from the fourth digit. NEUROLOGIC: Awake, alert and oriented x 3. No focal motor deficits. LABORATORY DATA: CBC reviewed and unremarkable. CMP reviewed and unremarkable. IMAGING STUDIES: 1. Chest x-ray demonstrates no active disease. 2. X-ray of the bilateral feet demonstrates bony destruction of the 4th distal phalanx of the left foot consistent with osteomyelitis. ASSESSMENT: The patient is a 67 year old woman with a past medical history of NIDDM, HTN, hyperlipidemia and CAD s/p PCI with stent placement who was sent to the ED by her bookkeeping assistant for evaluation of a chronic nonhealing left foot ulcer and who was admitted for management of osteomyelitis. PLAN: 1. Osteomyelitis of the left foot 4th digit. Imaging studies reviewed and are compatible with osteomyelitis. The patient has received a dose of Vancomycin and Zosyn in the ED. We will check an ESR and CRP. Dr. Ramírez of Infectious Disease has been consulted for further antimicrobial therapy. Dr. Ji of Podiatry has been consulted for surgical evaluation for possible amputation. Blood cultures have been obtained in the ED. We will continue to monitor for fever and leukocytosis. 2. NIDDM. Resume Glipizide XL 5 mg p.o. daily and we will start medium dose insulin sliding scale for coverage. Continue to monitor fingersticks before every meals and at bedtime. We will obtain a hemoglobin A1c in the morning. 3. CAD s/p PCI with stent placement. Resume Aspirin 81 mg p.o. daily, Plavix 75 mg p.o. daily, Lipitor 40 mg p.o. daily and Metoprolol 25 mg p.o. b.i.d. 4. Hypertension. Resume Metoprolol 25 mg p.o. b.i.d. 5. Hyperlipidemia. Resume Lipitor 40 mg p.o. daily. 6. Anxiety disorder. Resume Xanax 0.25 mg p.o. b.i.d. as needed. 7. Prophylaxis. GI prophylaxis is not indicated as patient is eating. DVT prophylaxis is not indicated as patient is ambulatory. CODE STATUS: Full code. Atul Mckeon MD MTDM[facility] Teresa
--- NOTE | 2017-10-25 02:16 | CON ---
DATE: 10/24/2017 LOCATION: The patient is in room 561, bed 2. CHIEF COMPLAINT: Infection of the left foot times several days. HISTORY OF PRESENT ILLNESS: This is a 67-year-old female with a history of coronary artery disease, diabetes mellitus, hypertension, hyperlipidemia, obesity, history of osteomyelitis of the right foot with Pseudomonas, Enterococcus, history of Brandon's palsy. The patient has had a right foot surgery and a cardiac cath with stent placement. No known allergies. She was admitted now with infection of the left fourth toe with an osteomyelitis. Review of systems reveals no fevers, no chills, no nausea, no vomiting, no chest pain. No abdominal pain, diarrhea or constipation. No bright red blood per rectum. No melena. PAST MEDICAL HISTORY: Significant for coronary artery disease, diabetes mellitus, hypertension and hyperlipidemia, obesity, osteomyelitis and Pseudomonas, Enterococcus with Brandon's palsy and coronary artery disease. REVIEW OF SYSTEMS: Twelve-point review systems is performed. PAST SURGICAL HISTORY: Significant for cardiac catheterization with stent placement, right foot surgery. ALLERGIES: THE PATIENT HAS NO KNOWN ALLERGIES. MEDICATIONS AT HOME: Include the patient to be on Plavix, aspirin and [place]. The patient was on Bactrim and the Lipitor and metoprolol, glipizide. PHYSICAL EXAMINATION: GENERAL: The patient is in bed, in no acute distress, answering questions appropriately. VITAL SIGNS: Temperature of 98, blood pressure is 168/70, respiratory rate of 80, heart rate of 77. HEENT: Examination of HEENT is unremarkable. NECK: Supple. LUNGS: Have decreased breath sounds. HEART: Normal S1 and S2. ABDOMEN: Soft, nontender. EXTREMITIES: Examination of foot reveals mild erythema of the left fourth toe. Examination of the right foot reveals a chronic ulcer on the base of the right foot. LABORATORY EXAMINATION: Reveals the patient's white count of 9.2, hemoglobin of 13, platelets of 229 and coagulation is noted and chemistries are reviewed. Microbiology reveals the patient has had a bone culture, which had Pseudomonas in 2011. Another bone culture had Pseudomonas is 2011. The x-ray of the foot reveals osteomyelitis. ASSESSMENT AND PLAN: This is a 67-year-old female with obesity with a body mass index of 31, diabetes mellitus, hypertension, hyperlipidemia, coronary artery disease, Brandon's palsy, osteomyelitis of the right foot with Pseudomonas in 2011 and also it was written that she has no known allergies. There were questionable allergies in 2011 after receiving 3 weeks of antibiotics, but she cannot remember what antibiotic she was receiving and the patient with Charcot's foot, now presenting with a left foot toe osteomyelitis for amputation and we will order arterial Dopplers of lower extremities and at this point since the patient has no systemic issues, we will order sed rate and C-reactive protein and we will keep the patient off of antibiotics pending OR cultures and OR Gram stain, sed rate, C-reactive protein and no antibiotics at this time pending OR cultures and the pathology report on all Gram stain. We will follow closely with you. Cedrick Ramírez MD
[2017-10-25 06:55] LABS: BASO # 0.02 K/mm3 (0.0-2.0); BASO % 0.3 % (0.0-3.0); EOS # 0.3 (0.0-0.7); EOS % 4.5 % (1.5-5.0); GRAN # 4.41 (1.4-6.5); GRAN % 70.2 % (50.0-68.0); HEMOGLOBIN 11.3 g/dL (12.0-16.0); LYMPH # 1.1 (1.2-3.4); LYMPH % 17.2 % (22.0-35.0); MEAN CELL VOLUME 82.6 fl (80.0-105.0); MEAN CORPUSCULAR HEMOGLOBIN 26.9 pg (25.0-35.0); MEAN CORPUSCULAR HGB CONC 32.6 g/dl (31.0-37.0); MEAN PLATELET VOLUME 9.6 fl (7.0-11.0); MONO # 0.5 (0.1-0.6); MONO % 7.8 % (1.0-6.0); RBC 4.2 10^6/uL (3.5-6.1); RED CELL DISTRIBUTION WIDTH 13.6 % (11.5-14.5); WHITE BLOOD COUNT 6.3 10^3/ul (4.5-11.0)
[2017-10-25 07:16] LABS: LDL CHOLESTEROL 49 mg/dL (0-129)
[2017-10-25 07:21] LABS: BLOOD UREA NITROGEN 21 mg/dL (7-21); GFR AFRICAN-AMERICAN > 60; GFR NON-AFRICAN AMERICAN 56
[2017-10-25 07:22] LABS: ALBUMIN 3.5 g/dL (3.0-4.8); ALT/SGPT 30 U/L (7-56); AST/SGOT 32 U/L (14-36); HDL CHOLESTEROL 35 mg/dL (29-60)
[2017-10-25] MEDS: Insulin Reg-MEDIUM-Coverage SC SCH ×3 (08:01→16:05)
[2017-10-25] MEDS: GlipiZIDE 5 mg SR Tab PO SCH (09:08)
--- NOTE | 2017-10-25 10:09 | CP.PCM.CON ---
History of Present Illness - History of Present Illness History of Present Illness: Podiatry Consult Note- Dr. Ji 67 y.o female with PMHx of DM with neuropathy, HTN, HLD, CAD with 5 stents ~ 2016, left foot Charcot seen and evaluated at bedside for left 4th digit with OM and right foot plantar ulceration. Patient was admitted yesterday and was sent to the ED by Dr. Ji for worsening redness and swelling of the left 4th digit. Patient is well known to Dr. Ji and sees him weekly in office where she was diagnosed with 4th digit OM. Patient reports that she has had problems with her 4th digit for about 2-3 months. Reports noticing a tiny opening on top of her 4th toe 1.5 week ago which has now closed however redness and swelling appears to be worse. Patient denies nausea, fever, shortness of breath, chest pains or chills. PMHx: DM with neuropathy, HTN, HLD, CAD with 5 stents ~05/2017, left foot Charcot PSH: catherization with 5 stents, right 3rd digit amputation secondary to OM, right partial distal hallux amputation secondary to OM, right 2nd digit hammertoe correction, eye surgery SH: denies smoking, drinking EtOH, or illicit drug use ALL: NKDA (reports that after her surgery in 2016 patient had a rash, does not know the cause, possible contrast dye, medication allergy?) FH: mother-DM, father- COPD, CAD Past Patient History - Infectious Disease Hx of Infectious Diseases: None - Past Social History Smoking Status: Never Smoked - CARDIAC Hx Cardiac Disorders: Yes Hx Hypercholesterolemia: Yes Hx Hypertension: Yes Hx Pacemaker: No Hx Peripheral Edema: Yes Other/Comment: cardiac stent X 5 - PULMONARY Hx Respiratory Disorders: No - NEUROLOGICAL Hx Neurological Disorder: Yes (HARRIS'S PALSY?) - HEENT Hx HEENT Problems: Yes (WEARS RX GLASSES) - RENAL Hx Chronic Kidney Disease: No - ENDOCRINE/METABOLIC Hx Endocrine Disorders: Yes Hx Diabetes Mellitus Type 2: Yes - HEMATOLOGICAL/ONCOLOGICAL Hx Blood Disorders: No - INTEGUMENTARY Hx Dermatological Problems: Yes Other/Comment: LEFT 4TH TOE OSTEOMYELITIS. LEFT 2ND TOE DISFIGURED.BALL OF FOOT HAS A LIGHT BROWN CALLOUSED AREA. RIGHT BALL OF FOOT WITH AN OPEN WOUND MEASURES 2 CM IN DM. DRAINAING BRIGHT RED BLOOD. - MUSCULOSKELETAL/RHEUMATOLOGICAL Hx Musculoskeletal Disorders: Yes Hx Falls: Yes (FELL 10-23-17) Hx Unsteady Gait: Yes (CANE) - GASTROINTESTINAL Hx Gastrointestinal Disorders: No - GENITOURINARY/GYNECOLOGICAL Hx Genitourinary Disorders: No - PSYCHIATRIC Hx Psychophysiologic Disorder: Yes (DRINKS SOCIALLY) Hx Emotional Abuse: No Hx Physical Abuse: No Hx Substance Use: No - SURGICAL HISTORY Hx Surgeries: Yes (05/2017 PTCA AND STENT OF 5 LESIONS IN LAD,) Hx Cardiac Catheterization: Yes Hx Coronary Stent: Yes (X5) Other/Comment: PARATHYROIDECTOMY - ANESTHESIA Hx Anesthesia Reactions: No Hx Malignant Hyperthermia: No Meds Allergies/Adverse Reactions: Allergies Allergy/AdvReac Type Severity Reaction Status Date / Time No Known Allergies Allergy Verified 10/24/17 16:01 - Medications Medications: Current Medications Alprazolam (Xanax) 0.25 mg PO BID PRN; Protocol PRN Reason: Anxiety Stop: 10/31/17 12:58 Atorvastatin Calcium (Lipitor) 40 mg PO DAILY [facility] Last Admin: 10/25/17 09:08 Dose: 40 mg Glipizide (Glucotrol Xl) 5 mg PO DAILY [facility] Last Admin: 10/25/17 09:08 Dose: 5 mg Insulin Human Regular (Humulin R Med) 0 units SC ACHS [facility] PRN Reason: Protocol Last Admin: 10/25/17 08:01 Dose: 1 units Metoprolol Tartrate (Lopressor) 25 mg PO BID [facility] Last Admin: 10/25/17 09:09 Dose: 25 mg Tramadol HCl (Ultram) 50 mg PO TID [facility] Last Admin: 10/25/17 09:08 Dose: 50 mg Physical Exam - Constitutional Appears: Well, Non-toxic, No Acute Distress - Extremities Exam Extremities exam: Negative for: calf tenderness Additional comments: VASC: DP and PT right 2/4, DP and PT left 1/4, temperature gradient warm to cool from proximal knees to distal toes, edema to the left 4th digit ORTHO: no pain with palpation to the LE at left 4th digit and right foot ulceration site, MM is 5/5 in all four compartments, patient able to wiggle toes , medial deviation of the 2nd and 3rd digit, 2>3, with crossing of 2nd digit over hallux NEURO: protective and gross sensation diminished DERM: left foot 4th digit with no ulceration noted at this time, hyperpigmented darken with xerotic changes to the 4th digit extending 5cm long along the entire 4th digit. Boggy 4th digit noted, no abscess, no fluctance right foot ulceration at sub met 4/5 measuring approximately 2 x 1.2 x .1 cm with wound base mainly granular, no active drainage, no odor, no erythema, no streaking, no tunneling, mild undermining, no abscess, no probe to bone, no clinical signs of infection - Neurological Exam Neurological exam: Alert, Oriented x3 - Psychiatric Exam Psychiatric exam: Normal Affect, Normal Mood Results - Vital Signs Recent Vital Signs: Last Vital Signs Temp 97.6 F 10/25/17 06:00 Pulse 80 10/25/17 09:09 Resp 20 10/25/17 06:00 BP 149/74 10/25/17 09:09 Pulse Ox 99 10/25/17 06:00 - Labs Result Diagrams: 10/25/17 06:30 10/25/17 06:30 Labs: Laboratory Results - last 24 hr 10/24/17 10/24/17 10/25/17 16:15 21:46 06:30 WBC 6.3 D RBC 4.20 Hgb 11.3 L Hct 34.7 L MCV 82.6 MCH 26.9 MCHC 32.6 RDW 13.6 Plt Count 206 MPV 9.6 Gran % 70.2 H Lymph % (Auto) 17.2 L Chase % (Auto) 7.8 H Eos % (Auto) 4.5 Baso % (Auto) 0.3 Gran # 4.41 Lymph # (Auto) 1.1 L Chase # (Auto) 0.5 Eos # (Auto) 0.3 Baso # (Auto) 0.02 ESR 53 H Sodium Potassium Chloride Carbon Dioxide Anion Gap BUN Creatinine Est GFR ( Amer) Est GFR (Non-Af Amer) POC Glucose (mg/dL) 104 134 H Random Glucose Calcium Total Bilirubin AST ALT Alkaline Phosphatase Total Protein Albumin Globulin Albumin/Globulin Ratio Triglycerides Cholesterol LDL Cholesterol Direct HDL Cholesterol 10/25/17 10/25/17 06:30 06:35 WBC RBC Hgb Hct MCV MCH MCHC RDW Plt Count MPV Gran % Lymph % (Auto) Chase % (Auto) Eos % (Auto) Baso % (Auto) Gran # Lymph # (Auto) Chase # (Auto) Eos # (Auto) Baso # (Auto) ESR Sodium 141 Potassium 4.9 Chloride 103 Carbon Dioxide 26 Anion Gap 16 BUN 21 Creatinine 1.0 Est GFR ( Amer) > 60 Est GFR (Non-Af Amer) 56 POC Glucose (mg/dL) 168 H Random Glucose 178 H Calcium 9.0 Total Bilirubin 0.7 AST 32 ALT 30 Alkaline Phosphatase 133 H Total Protein 7.0 Albumin 3.5 Globulin 3.5 Albumin/Globulin Ratio 1.0 L Triglycerides 129 Cholesterol 115 L LDL Cholesterol Direct 49 HDL Cholesterol 35 Assessment & Plan - Assessment and Plan (Free Text) Assessment: 7 y.o female with PMHx of DM with neuropathy, HTN, HLD, CAD with 5 stents in 2016 with left 4th digit OM and right plantar ulceration secondary to DM and pressure Plan: Patient examined and evaluated Will discuss plan with attending Labs, vitals, chart reviewed (afebrile, absent leukocytosis) X-rays reviewed- 4th digit distal phalanx with OM ESR elevated 53 CRP pending Left foot no ulceration, no dressing needed at this time Right foot plantar ulceration covered with optifoam Patient to go to the OR tomorrow for partial amputation of left 4th digit NPO diet after midnight Please provide medical and cardiac clearance, thank you ID on board. Per ID, will hold off on abx pending OR culture and gram stain Will continue to follow while in house
--- NOTE | 2017-10-25 10:43 | PN ---
SUBJECTIVE: The patient was seen and examined at bedside on the general medical estevez. No acute events overnight. She remains afebrile and hemodynamically stable. This morning she feels okay and her sole complaint is that of some mild low back pain which is chronic in nature. OBJECTIVE: VITAL SIGNS: Temperature 97.6, pulse 80, blood pressure 149/74, respiratory rate 20, oxygen saturation 99% on room air. GENERAL: No apparent distress. HEENT: PERRL, EOMI. No scleral icterus. No conjunctival pallor. NECK: No JVD, no bruits. LUNGS: Clear to auscultation. CARDIOVASCULAR: Regular rate and rhythm. Normal S1 and S2. ABDOMEN: Normoactive bowel sounds. Soft, nontender, nondistended. EXTREMITIES: No edema. Left foot with erythema to the left 4th digit. NEUROLOGIC: Awake, alert, and oriented x 3. No focal motor deficits. LABORATORY DATA: CBC reviewed and unremarkable. CMP reviewed and unremarkable. ASSESSMENT: The patient is a 67 year old woman with a past medical history of NIDDM, HTN, hyperlipidemia and CAD s/p PCI with multiple stent placement who was sent to the ED by her chisel mortiser operator for evaluation of a chronic, nonhealing left foot ulcer and who was admitted for management of osteomyelitis. PLAN: 1. Osteomyelitis of the left foot 4th digit. Input from Dr. Ramírez appreciated and the patient remains off antimicrobial therapy pending podiatric surgery. Input from Dr. Ji also appreciated and arrangements are being made for toe amputation. Blood cultures have been obtained in the ED and we will await the culture reports. A baseline ESR and CRP are pending. Given the fact that the patient recently had multiple stents placed (06/2017), she will be at an increased risk for the OR if she is to hold her Aspirin and Plavix preoperatively. These medications should be resumed as soon as possible postoperatively. 2. NIDDM. Continue Glipizide XL 5 mg p.o. daily and medium dose insulin sliding scale for coverage. Continue to monitor fingersticks before every meal and at bedtime. Repeat hemoglobin A1c is pending. 3. CAD s/p PCI with multiple stent placement. Continue Lipitor 40 mg p.o. daily and Metoprolol 25 mg p.o. b.i.d. As above, Aspirin and Plavix are on hold in anticipation of OR but should be restarted as soon as possible postoperatively. 4. Hypertension: Continue Metoprolol 25 mg p.o. b.i.d. 5. Hyperlipidemia. Continue Lipitor 40 mg p.o. daily. 6. Anxiety disorder: Continue Xanax 0.25 mg p.o. b.i.d. 7. Prophylaxis: GI prophylaxis is not indicated as the patient is eating. DVT prophylaxis is not indicated as the patient is ambulatory. CODE STATUS: Full Code. Atul Mckeon MD MTDM[facility] Teresa
--- NOTE | 2017-10-25 10:44 | CON ---
DATE: 10/24/2017 TIME OF CONSULTATION: 1900 hours. LOCATION OF CONSULTATION: [facility] room 561, bed 2. REASON FOR CONSULTATION: This is a 67-year-old female, known to me, who was referred for admission to the ED with a nonimproving abscess and osteomyelitis of the left fourth toe. This has been present for greater than 1 week, treated with oral antibiotics without improvement. The patient also reports last night, a fall at home on the stairs with injury to the left lower extremity. HISTORY OF PRESENT ILLNESS: The patient is a longstanding diabetic neuropathic patient with bilateral Charcot foot deformity and multiple previous digital amputations. She is on a variety of orthopedic shoe gear with several versions of orthotic diabetic molds and still is under care for a right foot ulceration that is yet not healed and the recent left fourth toe abscess that was worsening. PAST MEDICAL HISTORY AND SURGICAL HISTORY: She has a history of long-standing diabetes with peripheral neuropathy; hypertension; cardiac condition with recent cardiac stents, currently on Plavix and aspirin. She also has a surgical history of parathyroidectomy and digital and metatarsal amputations on both feet. SOCIAL HISTORY: She denies tobacco use, alcohol or substance abuse. ALLERGIES: SHE REPORTS NO KNOWN DRUG ALLERGIES. MEDICATIONS: The medications obtained on the history and physical are reviewed. REVIEW OF SYSTEMS: Essentially negative except for the complaints associated with her HPI and those associated with her fall last night. PHYSICAL EXAMINATION: GENERAL: The patient is sitting comfortably in bed with her daughter and friends visiting at the bedside upon my arrival. She is alert and oriented x3. She is in no acute distress and she is responsive to interview. VITAL SIGNS: Stable. EXTREMITIES: Lower extremity examination reveals weak pulses, DP and PT, but warm lower extremity bilaterally. She has a 2 second capillary return. There is bilateral severe diabetic neuroarthropathy with severe rigid deformity of the mid and forefoot bilaterally. There is a full-thickness diabetic foot ulcer on the sole of the right foot sub fourth MTP, which is approximately 3 x 3 cm and has a granular bed with macerated margins. The left foot reveals a severely deformed left fourth toe with erythema extending onto the dorsum of the left foot. There is a draining abscess noted over the distal IP joint. The toe exhibits no pus upon manipulation. The overall erythema and appearance of the left foot has improved in the last 12 hours the patient having had a dose of IV antibiotic, better than it had been on the week or so of oral antibiotic. LABORATORY AND X-RAY DATA: The x-rays obtained upon admission of the left knee revealed normal radiographic images with no evidence of fracture or dislocation. X-ray of both feet upon admission indicate severe neuropathic osteoarthritis with destructive joint changes on the midfoot and forefoot and toes bilaterally. There is clearly noted destruction of the distal phalanx and involvement of the middle phalanx on the fourth toe of the left foot. MRI without contrast which had been obtained last week, approximately last indicate no evidence of bone marrow edema or signs of osteomyelitis on the right foot, but positive bone marrow edema in the distal and middle phalanx of the left fourth toe. The culture and sensitivity from the exudate of the left fourth toe which had been obtained approximately seven days ago indicates positive MRSA. IMPRESSION: Diabetic neuropathy, bilateral Charcot foot, hypertension, coronary artery disease with stent placement, contusions of the left lower extremity, diabetic foot ulcer on the sole of the right foot and an abscess and cellulitis of the left fourth toe and left foot with osteomyelitis indicated in the distal and middle phalanx of the left fourth toe. PLAN: The patient was sent to the ED for admission today and Infectious Disease workup and management tomorrow. We have been in telephone conversation with Dr. Mckeon, her primary and we will call Infectious Disease and Cardiology to evaluate the patient tomorrow in anticipation of clearance for a trip to the operating room on , approximately 0800 hours. The planned surgical procedure was explained to the patient. We are anticipating doing a digital amputation of the distal, middle and part of the proximal phalanx of the left fourth toe with wound and bone cultures to be obtained and primary closure. The surgical risk and alternative treatment options were explained to the patient and surgical consent is explained, signed and witnessed tonight in anticipation of surgery within the next 48 hours. The right foot diabetic ulcer is being maintained with Hydrogel and Optifoam bandages and the left foot will remain unbandaged. The patient will continue to receive her IV antibiotic per Infectious Disease's recommendations anticipating medical clearance for surgery on . Andi Ji DPM
--- NOTE | 2017-10-25 12:31 | CON ---
DATE: 10/25/2017 CARDIOLOGY CONSULTATION HISTORY OF PRESENT ILLNESS: I was called by the patient to see her in preparation for her potential surgery on her lower digit tomorrow. The patient is a 67-year-old woman with a history of multivessel CAD, who underwent cardiac catheterization and stenting in 06/2017. The patient's cardiac risks include hypertension, diabetes mellitus and hypercholesterolemia. She underwent successful PTCA and stent of multiple lesions in the RCA with drug-eluting stents. In addition, the patient has had stents in the LAD x2. She denies angina. Denies shortness of breath. SOCIAL HISTORY The patient does not smoke. REVIEW OF SYSTEMS: Fourteen-point review of systems is reviewed in detail. No cardiac symptoms are noted. PHYSICAL EXAMINATION: VITAL SIGNS: Blood pressure is 149/74 with the heart rates in the 80s. NECK: Negative JVD. LUNGS: Without rales. HEART: Reveals S1, S2. EXTREMITIES: Bandage to the right lower extremity. EKG is within normal limits. LABORATORY DATA: Hemoglobin is 11.3. Chemistries: BUN and creatinine unremarkable. The glucose is 178. IMPRESSION: 1. Ischemic lower extremity. 2. Peripheral vascular disease. 3. Diabetes mellitus. 4. Coronary artery disease. 5. Hypercholesterolemia. 6. Hypertension. PLAN: Given these findings, the patient is scheduled for amputation of the lower digit in the morning. The patient has had multivessel PTCA and stent in the past. By stopping her Plavix, which may be necessary, the patient is at increased risk for acute coronary thrombosis. If surgery is necessary and risk, benefit analysis requires that the patient undergo surgery, we will hold Plavix for now. I would restart her on Plavix as soon as possible after surgery. Andi Pearce MD
--- NOTE | 2017-10-25 13:14 | US ---
PROCEDURE: Lower extremity EVERTON exam HISTORY: Peripheral vascular disease with pain and ulceration. Diabetes. PHYSICIAN(S): Andi Talley MD. FINDINGS: The resting EVERTON's are normal: right, 1.25and left, 1.15. The brachial systolic pressures are symmetric. The high thigh pressures and waveforms are relatively normal. The calf PVR waveforms augment normally. No significant gradients are noted across the thighs. The ankle and metatarsal waveforms are relatively normal and symmetric. No significant pressure gradients are noted across the lower legs. IMPRESSION: 1. Relatively normal EVERTON and PVR examination at rest.
--- NOTE | 2017-10-25 14:02 | PN ---
DATE: 10/25/2017 SUBJECTIVE: The patient is in bed, in no acute distress, nontoxic. PHYSICAL EXAMINATION: VITAL SIGNS: Temperature is 98, blood pressure , respiratory rate of 20. HEENT: Unremarkable. NECK: Supple. LUNGS: Have decreased breath sounds. HEART: Normal S1 and S2. ABDOMEN: Soft, nontender. LABORATORY DATA: Reveals white count of 6.3, hemoglobin of 11, platelets of 206. BUN of 21, creatinine of 1. Micrology is pending. ASSESSMENT AND PLAN: A 67-year-old female who was seen earlier today in [facility], bed 2 with a history of coronary artery disease, diabetes, hypertension, hyperlipidemia, obesity and osteomyelitis of the right foot, Pseudomonas, Enterococcus, history of Brandon palsy. Now, admitted with left foot osteomyelitis. The patient has toe amputation. Currently off of antibiotics. We will wait for the OR tomorrow. The patient also has a Charcot's foot. Recommend Gram stain, cultures, pathology. We will start empiric antibiotics as per the OR since the patient is not systemically ill. We will follow with you, pending OR cultures and pathology report. Cedrick Ramírez MD
[2017-10-26 07:07] LABS: BASO # 0.03 K/mm3 (0.0-2.0); BASO % 0.4 % (0.0-3.0); EOS # 0.3 (0.0-0.7); EOS % 4.3 % (1.5-5.0); GRAN # 3.71 (1.4-6.5); GRAN % 55.2 % (50.0-68.0); HEMOGLOBIN 11.6 g/dL (12.0-16.0); LYMPH # 2.1 (1.2-3.4); LYMPH % 31.8 % (22.0-35.0); MEAN CELL VOLUME 82.2 fl (80.0-105.0); MEAN CORPUSCULAR HEMOGLOBIN 27.5 pg (25.0-35.0); MEAN CORPUSCULAR HGB CONC 33.4 g/dl (31.0-37.0); MEAN PLATELET VOLUME 9.6 fl (7.0-11.0); MONO # 0.6 (0.1-0.6); MONO % 8.3 % (1.0-6.0); RBC 4.22 10^6/uL (3.5-6.1); RED CELL DISTRIBUTION WIDTH 13.4 % (11.5-14.5); WHITE BLOOD COUNT 6.7 10^3/ul (4.5-11.0)
--- NOTE | 2017-10-26 07:12 | CP.PCM.PN ---
Subjective - Date & Time of Evaluation Date of Evaluation: 10/26/17 Time of Evaluation: 07:45 - Subjective Subjective: Podiatry Progress Note- Dr. Ji 67 y.o female seen and evaluated in the morning for surgery today for left partial 4th digit amputation surgery secondary to 4th digit osteomyelitis. Patient is seen resting comfortably in bed, in NAD, and AA0x3. Denies acute overnight events. Denies nausea, fever, shortness of breath, chest pains or chills. Patient denies any complaints. Understands and agrees to surgery for left partial 4th digit amputation. Objective - Vital Signs/Intake and Output Vital Signs (last 24 hours): Temp Pulse Resp BP Pulse Ox 97.8 F 70 16 153/82 H 99 10/25/17 22:00 10/25/17 22:00 10/25/17 22:00 10/25/17 22:00 10/25/17 22:00 - Medications Medications: Current Medications Alprazolam (Xanax) 0.25 mg PO BID PRN; Protocol PRN Reason: Anxiety Stop: 10/31/17 12:58 Last Admin: 10/25/17 15:03 Dose: 0.25 mg Atorvastatin Calcium (Lipitor) 40 mg PO DAILY [facility] Last Admin: 10/25/17 09:08 Dose: 40 mg Glipizide (Glucotrol Xl) 5 mg PO DAILY [facility] Last Admin: 10/25/17 09:08 Dose: 5 mg Insulin Human Regular (Humulin R Med) 0 units SC ACHS [facility] PRN Reason: Protocol Last Admin: 10/25/17 16:05 Dose: Not Given Metoprolol Tartrate (Lopressor) 25 mg PO BID [facility] Last Admin: 10/25/17 17:29 Dose: 25 mg Tramadol HCl (Ultram) 50 mg PO TID [facility] Last Admin: 10/25/17 14:58 Dose: 50 mg - Labs Labs: 10/25/17 06:30 10/25/17 06:30 PT 12.3 SECONDS (9.4-12.5) 10/24/17 11:34 INR 1.07 (0.93-1.08) 10/24/17 11:34 APTT 26.9 Seconds (25.1-36.5) 10/24/17 11:34 - Constitutional Appears: Well, Non-toxic, No Acute Distress - Extremities Exam Extremities Exam: absent: Calf Tenderness Additional comments: VASC: DP and PT right 2/4, DP and PT left 1/4, temperature gradient warm to cool from proximal knees to distal toes, edema to the left 4th digit ORTHO: no pain with palpation to the LE at left 4th digit and right foot ulceration site, MM is 5/5 in all four compartments, patient able to wiggle toes , medial deviation of the 2nd and 3rd digit, 2>3, with crossing of 2nd digit over hallux NEURO: protective and gross sensation diminished DERM: left foot 4th digit with no ulceration noted at this time, hyperpigmented darken with xerotic changes to the 4th digit extending 5cm long along the entire 4th digit. Boggy 4th digit noted, no abscess, no fluctance right foot ulceration at sub met 4/5 measuring approximately 2 x 1.2 x .1 cm with wound base mainly granular, no active drainage, no odor, no erythema, no streaking, no tunneling, mild undermining, no abscess, no probe to bone, no clinical signs of infection - Neurological Exam Neurological Exam: Alert, Awake, Oriented x3 - Psychiatric Exam Psychiatric exam: Normal Affect, Normal Mood Assessment and Plan - Assessment and Plan (Free Text) Assessment: 67 y.o female seen and evaluated in the morning for surgery today for left partial 4th digit amputation surgery secondary to 4th digit osteomyelitis. Plan: Pt was seen and examined in SDS Pt NPO status was confirmed Pt has exhausted all conservative treatment at this time and is opting for surgical intervention Pt was explained procedure and post-operative course All pt's questions were answered to satisfaction No guarantees were made Pt understands all risks, benefits and complications of procedure Pt will follow-up with
[2017-10-26 07:31] LABS: ALB/GLOB RATIO 1.1 (1.1-1.8); ALBUMIN 3.8 g/dL (3.0-4.8); ALT/SGPT 39 U/L (7-56); AST/SGOT 36 U/L (14-36); BLOOD UREA NITROGEN 21 mg/dL (7-21); CALCIUM 9.1 mg/dL (8.4-10.5); GFR AFRICAN-AMERICAN > 60; GFR NON-AFRICAN AMERICAN > 60
[2017-10-26] MEDS: Insulin Reg-MEDIUM-Coverage SC SCH ×4 (07:32→22:16)
[2017-10-26] MEDS ORDERED: Bupivacaine 0.5% Inj(30mL) ONE (08:33)
[2017-10-26] MEDS ORDERED: Lidocaine 1% Inj (20ml) ONE ×2 (08:33→08:51)
[2017-10-26] MEDS ORDERED: Propofol 10 mg/ml Inj (20 ML) ONE (08:48)
[2017-10-26] MEDS ORDERED: Midazolam 2 MG/2 ML VIAL ONE (08:48)
--- NOTE | 2017-10-26 09:44 | PN ---
SUBJECTIVE: The patient was seen and examined at bedside on the general medical estevez. No acute events overnight. She remains afebrile and hemodynamically stable. This morning she is scheduled for podiatric surgery and probable amputation of her left foot 4th digit secondary to osteomyelitis. Overall she feels well and offers no complaints. OBJECTIVE: VITAL SIGNS: Temperature 97.4, pulse 77, blood pressure 147/63, respiratory rate 18, oxygen saturation 100% on room air. GENERAL: No apparent distress. HEENT: PERRL, EOMI. No scleral icterus. No conjunctival pallor. NECK: No JVD. LUNGS: Clear to auscultation. CARDIOVASCULAR: Regular rate and rhythm. Normal S1 and S2. ABDOMEN: Normoactive bowel sounds. Soft, nontender and nondistended. EXTREMITIES: No edema. Left foot with erythema to the left 4th digit. NEUROLOGIC: Awake, alert and oriented x 3. No focal motor deficits. LABORATORY DATA: CBC reviewed and unremarkable. CMP reviewed and unremarkable. Hemoglobin A1c 7.8. ESR 53, CRP 9.3. IMAGING STUDIES: Left lower extremity EVERTON is unremarkable. ASSESSMENT: The patient is a 67 year old woman with a past medical history of NIDDM, hypertension, hyperlipidemia and CAD s/p PCI with multiple stent placement who was sent to the ED by her meeting planner for evaluation of a chronic, nonhealing left foot ulcer and who was admitted for management of osteomyelitis. PLAN: 1. Osteomyelitis of the left foot 4th digit. The patient is scheduled for podiatric surgery today and probable amputation. Continue with postprocedure care as per Dr. Ji. Input from Dr. Ramírez appreciated and the patient remains off antimicrobials pending cultures obtained intraoperatively. Blood cultures from the ED are negative. Baseline ESR and CRP are noted. 2. NIDDM. Most recent A1c of 7.8. Continue Glipizide XL 5 mg p.o. daily and medium-dose insulin sliding scale for coverage. 3. CAD s/p PCI with multiple stent placement. Continue Lipitor 40 mg p.o. daily and Metoprolol 25 mg p.o. b.i.d. Aspirin and Plavix should be restarted as soon as possible postoperatively. 4. Hypertension. Continue Metoprolol 25 mg p.o. b.i.d. 5. Hyperlipidemia. Continue Lipitor 40 mg p.o. daily. 6. Anxiety disorder. Continue Xanax 0.25 mg p.o. b.i.d. 7. Prophylaxis. GI prophylaxis is not indicated as the patient is eating. DVT prophylaxis is not indicated as the patient is ambulatory. CODE STATUS: Full code. Atul Mckeon MD MTDMaria Teresa
[2017-10-26] MEDS ORDERED: HYDROmorphone 0.5 mg/0.5 ml ISec IVP PRN (09:55)
--- NOTE | 2017-10-26 09:58 | PCM.SURG1 ---
Surgeon's Initial Post Op Note - Surgeon's Notes Surgeon: Dr. Margy GUNDERSON Purifying Plant Operator: Dr. Harjit GUNDERSON, Mio MSY-4 Type of Anesthesia: IV Sedation, Local Anesthesia Administered By: Dr. Lofton Pre-Operative Diagnosis: left 4th digit osteomyelitis Operative Findings: see dictation. materials: 2-0 prolene, intraoperative injectables 6 cc of 1:1 .5% marcaine plain and 1% lidocaine plain Post-Operative Diagnosis: same Operation Performed: left 4th digit amputation Specimen/Specimens Removed: 1. bone and soft tissue left 4th digit amputation. 2. most proximal bone of left 4th digit amputation. 3. deep wound culture Estimated Blood Loss: EBL {In ML}: 2 Blood Products Given: N/A Drains Used: No Drains Post-Op Condition: Good Date of Surgery/Procedure: 10/26/17 Time of Surgery/Procedure: 09:20
[2017-10-26] MEDS ORDERED: Lactated Ringer's 1,000 ML IV SCH (10:00)
[2017-10-26] MEDS ORDERED: Oxycodone/Acetaminophen 5/325 mg Tab PO PRN ×2 (10:05)
--- NOTE | 2017-10-26 10:51 | RAD ---
PROCEDURE: Left Foot Radiographs. HISTORY: s/p left foot surgery COMPARISON: 10/24/2017 FINDINGS: BONES: There has been amputation at the level of the 4th proximal phalanx. No complicating factors JOINTS: Normal. SOFT TISSUES: Normal. OTHER FINDINGS: None. IMPRESSION: There has been amputation at the level of the 4th proximal phalanx. No complicating factors
[2017-10-26] MEDS: GlipiZIDE 5 mg SR Tab PO SCH (11:18)
[2017-10-26] MEDS: Piperacillin/Tazobact 3.375 gm 100 ML IVPB SCH ×2 (17:55→23:33)
[2017-10-26] MEDS: Vancomycin 1gm in NS 250ml 1 GM/250 ML BAG IVPB SCH (19:01)
--- NOTE | 2017-10-26 21:28 | PN ---
DATE: 10/26/2017 SUBJECTIVE: The patient is in bed, in no acute distress, nontoxic. PHYSICAL EXAMINATION: VITAL SIGNS: Temperature is 97, blood pressure is 140/60, respiratory rate of 20, heart rate of 79. HEENT: Unremarkable. NECK: Supple. LUNGS: Have decreased breath sounds. HEART: Normal S1, S2. ABDOMEN: Soft, nontender. LABORATORY DATA: Reveals a white count of 6.7, hemoglobin of 11, platelets of 228. Chemistries reveals a BUN of 21, creatinine of 0.9. Microbiology reveals the blood cultures are no growth. of the foot is noted. Operative note is reviewed. Amputation of the fourth toe. ASSESSMENT AND PLAN: A 67-year-old female who was seen earlier today with coronary artery disease, diabetes mellitus, hypertension, hyperlipidemia, obesity, and osteomyelitis of the right foot, Pseudomonas enterococcus and history of Brandon palsy, admitted with left foot osteomyelitis with a Charcot foot. The patient had a left fourth toe amputation. We will start the patient empirically now on vancomycin and Zosyn pending OR cultures and OR pathology. Cedrick Ramírez MD
[2017-10-27] MEDS: Vancomycin 1gm in NS 250ml 1 GM/250 ML BAG IVPB SCH ×2 (04:53→18:50)
[2017-10-27] MEDS: Piperacillin/Tazobact 3.375 gm 100 ML IVPB SCH ×4 (06:24→23:48)
[2017-10-27 06:58] LABS: BASO # 0.01 K/mm3 (0.0-2.0); BASO % 0.2 % (0.0-3.0); EOS # 0.2 (0.0-0.7); EOS % 3.7 % (1.5-5.0); GRAN # 5.03 (1.4-6.5); HEMOGLOBIN 11.1 g/dL (12.0-16.0); LYMPH # 0.3 (1.2-3.4); LYMPH % 5.5 % (22.0-35.0); MEAN CELL VOLUME 82.4 fl (80.0-105.0); MEAN CORPUSCULAR HEMOGLOBIN 27.1 pg (25.0-35.0); MEAN CORPUSCULAR HGB CONC 32.9 g/dl (31.0-37.0); MEAN PLATELET VOLUME 9.6 fl (7.0-11.0); MONO # 0.5 (0.1-0.6); MONO % 8.6 % (1.0-6.0); RBC 4.09 10^6/uL (3.5-6.1); RED CELL DISTRIBUTION WIDTH 13.3 % (11.5-14.5); WHITE BLOOD COUNT 6.1 10^3/ul (4.5-11.0)
[2017-10-27 07:13] LABS: ALBUMIN 3.5 g/dL (3.0-4.8); ALT/SGPT 37 U/L (7-56); AST/SGOT 29 U/L (14-36); BLOOD UREA NITROGEN 18 mg/dL (7-21); CALCIUM 8.6 mg/dL (8.4-10.5); GFR AFRICAN-AMERICAN > 60; GFR NON-AFRICAN AMERICAN > 60
[2017-10-27] MEDS: Insulin Reg-MEDIUM-Coverage SC SCH ×4 (08:40→22:23)
[2017-10-27] MEDS: GlipiZIDE 5 mg SR Tab PO SCH (10:02)
--- NOTE | 2017-10-27 12:22 | PN ---
DATE: 10/27/2017 LOCATION: The patient is in room 561, bed 2. SUBJECTIVE: She is a 67-year-old female with a history of diabetes. She also was diagnosed with osteomyelitis by Dr. Ji, her service delivery supervisor. She was brought in for a selective amputation. The patient is currently lying in bed and has no specific complaints and there had been no acute events overnight. PHYSICAL EXAMINATION: VITAL SIGNS: Temperature of 98.6, blood pressure 143/73, respiratory rate of 20, O2 saturation of 100% on room air. HEENT: PERRLA, EOMI. No icterus. NECK: Supple with a full range of motion. LUNGS: Clear bilaterally. HEART: Regular rate and rhythm. ABDOMEN: Benign. EXTREMITIES: The left foot is bandaged. NEUROLOGIC: The patient is intact. ASSESSMENT: 1. Osteomyelitis of the left fourth toe, surgically resected. 2. Diabetes mellitus. PLAN: We will continue current regimen and we will follow the patient on an outpatient basis after she is discharged. Tip Mckeon MD
--- NOTE | 2017-10-27 12:31 | PN ---
DATE: 10/27/2017 CARDIOLOGY FOLLOWUP SUBJECTIVE: The patient tolerated surgery well. PHYSICAL EXAMINATION: VITAL SIGNS: Blood pressure 159/69, the heart rates in the 80s. NECK: Negative JVD. LUNGS: Without rales. HEART: Reveals S1, S2. EXTREMITIES: Left foot is bandaged. LABORATORY DATA: Hemoglobin is 11.1. Chemistries, BUN and creatinine unremarkable. IMPRESSION: 1. Status post surgery for osteomyelitis in the lower digit. 2. Stable angina. 3. Coronary artery disease. 4. Anemia. 5. Hypertension. Given these findings, the patient is back on her Plavix. The patient is stable from a cardiac perspective. Andi Pearce MD
--- NOTE | 2017-10-27 15:26 | CP.PCM.PN ---
Subjective - Date & Time of Evaluation Date of Evaluation: 10/27/17 Time of Evaluation: 11:00 - Subjective Subjective: No fevers, less pain in the left foot, no nausea, no diarrhea. Objective - Vital Signs/Intake and Output Vital Signs (last 24 hours): Temp Pulse Resp BP Pulse Ox 98.8 F 89 20 150/64 98 10/27/17 14:00 10/27/17 14:00 10/27/17 14:00 10/27/17 14:00 10/27/17 14:00 Intake and Output: 10/27/17 10/27/17 06:59 18:59 Intake Total 1020 Balance 1020 - Medications Medications: Current Medications Alprazolam (Xanax) 0.25 mg PO BID PRN; Protocol PRN Reason: Anxiety Stop: 10/31/17 12:58 Last Admin: 10/27/17 07:36 Dose: 0.25 mg Aspirin (Ecotrin) 81 mg PO DAILY [facility] Last Admin: 10/27/17 10:01 Dose: 81 mg Atorvastatin Calcium (Lipitor) 40 mg PO DAILY [facility] Last Admin: 10/27/17 10:02 Dose: 40 mg Clopidogrel Bisulfate (Plavix) 75 mg PO DAILY [facility] Last Admin: 10/27/17 10:02 Dose: 75 mg Glipizide (Glucotrol Xl) 5 mg PO DAILY [facility] Last Admin: 10/27/17 10:02 Dose: 5 mg Vancomycin HCl (Vancomycin 1gm) 1 gm in 250 mls @ 167 mls/hr IVPB Q12H [facility] PRN Reason: Protocol Stop: 11/04/17 16:46 Last Admin: 10/27/17 04:53 Dose: 167 mls/hr Piperacillin Sod/Tazobactam Sod (Zosyn 3.375 In Ns 100ml) 100 mls @ 200 mls/hr IVPB Q6 [facility] PRN Reason: Protocol Stop: 11/04/17 18:01 Last Admin: 10/27/17 14:33 Dose: 200 mls/hr Insulin Human Regular (Humulin R Med) 0 units SC ACHS [facility] PRN Reason: Protocol Last Admin: 10/27/17 14:23 Dose: Not Given Metoprolol Tartrate (Lopressor) 25 mg PO BID [facility] Last Admin: 10/27/17 10:01 Dose: 25 mg Ondansetron HCl (Zofran Inj) 4 mg IVP ONCE PRN PRN Reason: Nausea/Vomiting Oxycodone/Acetaminophen (Percocet 5/325 Mg Tab) 1 tab PO Q4H PRN PRN Reason: Pain, moderate (4-7) Stop: 10/29/17 10:06 Oxycodone/Acetaminophen (Percocet 5/325 Mg Tab) 2 tab PO Q4H PRN PRN Reason: Pain, severe (8-10) Stop: 10/29/17 10:06 Tramadol HCl (Ultram) 50 mg PO TID [facility] Last Admin: 10/27/17 10:27 Dose: Not Given - Labs Labs: 10/27/17 06:15 10/27/17 06:15 PT 12.3 SECONDS (9.4-12.5) 10/24/17 11:34 INR 1.07 (0.93-1.08) 10/24/17 11:34 APTT 26.9 Seconds (25.1-36.5) 10/24/17 11:34 - Constitutional Appears: Chronically Ill - Head Exam Head Exam: NORMAL INSPECTION - ENT Exam ENT Exam: Mucous Membranes Moist - Neck Exam Neck Exam: absent: Lymphadenopathy, Meningismus - Respiratory Exam Respiratory Exam: Decreased Breath Sounds - Cardiovascular Exam Cardiovascular Exam: +S1, +S2 - GI/Abdominal Exam GI & Abdominal Exam: Soft. absent: Tenderness - Extremities Exam Additional comments: left foot with dressings in place Assessment and Plan - Assessment and Plan (Free Text) Plan: Assessment left 4th foot digit osteomyelitis S/P amputation in a patient with Charcot foot DM HTN obesity with BMI 32 history of right foot osteomyelitis Plan Continue Vancomycin and Zosyn pending OR cultures and pathology will monitor clinically
--- NOTE | 2017-10-27 16:18 | CP.PCM.PN ---
Subjective - Date & Time of Evaluation Date of Evaluation: 10/27/17 Time of Evaluation: 13:13 - Subjective Subjective: Podiatry Progress Note- Dr. Ji 67 y.o female POD#1 of left partial 4th digit amputation secondary to osteomyelitis and right foot ulceration. Patient is seen resting comfortably in bed, in NAD, and AA0x3. Friends were at bedside during visitation. Patient just returned from physical therapy. Patient reports she is doing well. Mani acute overnight events. Denies pain. Denies any pedal complaints. Denies nausea, fever , shortness of breath, chest pain or chills. Objective - Vital Signs/Intake and Output Vital Signs (last 24 hours): Temp Pulse Resp BP Pulse Ox 98.8 F 89 20 150/64 98 10/27/17 14:00 10/27/17 14:00 10/27/17 14:00 10/27/17 14:00 10/27/17 14:00 Intake and Output: 10/27/17 10/27/17 06:59 18:59 Intake Total 1020 Balance 1020 - Medications Medications: Current Medications Alprazolam (Xanax) 0.25 mg PO BID PRN; Protocol PRN Reason: Anxiety Stop: 10/31/17 12:58 Last Admin: 10/27/17 07:36 Dose: 0.25 mg Aspirin (Ecotrin) 81 mg PO DAILY [facility] Last Admin: 10/27/17 10:01 Dose: 81 mg Atorvastatin Calcium (Lipitor) 40 mg PO DAILY [facility] Last Admin: 10/27/17 10:02 Dose: 40 mg Clopidogrel Bisulfate (Plavix) 75 mg PO DAILY [facility] Last Admin: 10/27/17 10:02 Dose: 75 mg Glipizide (Glucotrol Xl) 5 mg PO DAILY [facility] Last Admin: 10/27/17 10:02 Dose: 5 mg Vancomycin HCl (Vancomycin 1gm) 1 gm in 250 mls @ 167 mls/hr IVPB Q12H [facility] PRN Reason: Protocol Stop: 11/04/17 16:46 Last Admin: 10/27/17 04:53 Dose: 167 mls/hr Piperacillin Sod/Tazobactam Sod (Zosyn 3.375 In Ns 100ml) 100 mls @ 200 mls/hr IVPB Q6 [facility] PRN Reason: Protocol Stop: 11/04/17 18:01 Last Admin: 10/27/17 14:33 Dose: 200 mls/hr Insulin Human Regular (Humulin R Med) 0 units SC ACHS [facility] PRN Reason: Protocol Last Admin: 10/27/17 14:23 Dose: Not Given Metoprolol Tartrate (Lopressor) 25 mg PO BID [facility] Last Admin: 10/27/17 10:01 Dose: 25 mg Ondansetron HCl (Zofran Inj) 4 mg IVP ONCE PRN PRN Reason: Nausea/Vomiting Oxycodone/Acetaminophen (Percocet 5/325 Mg Tab) 1 tab PO Q4H PRN PRN Reason: Pain, moderate (4-7) Stop: 10/29/17 10:06 Oxycodone/Acetaminophen (Percocet 5/325 Mg Tab) 2 tab PO Q4H PRN PRN Reason: Pain, severe (8-10) Stop: 10/29/17 10:06 Tramadol HCl (Ultram) 50 mg PO TID [facility] Last Admin: 10/27/17 15:35 Dose: 50 mg - Labs Labs: 10/27/17 06:15 10/27/17 06:15 PT 12.3 SECONDS (9.4-12.5) 10/24/17 11:34 INR 1.07 (0.93-1.08) 10/24/17 11:34 APTT 26.9 Seconds (25.1-36.5) 10/24/17 11:34 - Constitutional Appears: Well, Non-toxic, No Acute Distress - Extremities Exam Extremities Exam: absent: Calf Tenderness Additional comments: VASC: DP and PT right 2/4, DP and PT left 1/4, temperature gradient warm to cool from proximal knees to distal toes, edema to the left 4th digit ORTHO: no pain with palpation to the LE at left 4th digit and right foot ulceration site, MM is 5/5 in all four compartments, patient able to wiggle toes , medial deviation of the 2nd and 3rd digit, 2>3, with crossing of 2nd digit over hallux NEURO: protective and gross sensation diminished DERM: left partial amputation of 4th digit surgical site is clean, skin is well reapproximated with no dehiscense, sutures intact, no erythema, no streaking, no purulence, no malodor right foot ulceration at sub met 4/5 measuring approximately 2 x 1.2 x .1 cm with wound base mainly granular, no active drainage, no odor, no erythema, no streaking, no tunneling, mild undermining, no abscess, no probe to bone, no clinical signs of infection - Neurological Exam Neurological Exam: Alert, Awake, Oriented x3 - Psychiatric Exam Psychiatric exam: Normal Affect, Normal Mood Assessment and Plan - Assessment and Plan (Free Text) Assessment: 67 y.o female POD#1 of left partial 4th digit amputation secondary to osteomyelitis and right foot ulceration- stable Plan: Patient examined and evaluated Will discuss plan with attending Labs, vitals, chart reviewed (afebrile, absent leukocytosis) X-rays (10/24/17) reviewed- 4th digit distal phalanx with OM ESR elevated 53 S/P partial 4th digit amputation on 10/26/17 Left foot outer dressing removed, adaptic kept intact, betadine w2d, and dsd applied Right foot plantar ulceration cleansed with saline and covered with optifoam Deep wound culture taken in OR - pending Bone pathology - pending (preliminary gram positive cocci) C/w with abx per ID Patient to WBAT in left surgical shoe and right Forefoot offloading shoe c/w physical therapy Will continue to follow while in house
[2017-10-28] MEDS: Vancomycin 1gm in NS 250ml 1 GM/250 ML BAG IVPB SCH ×2 (04:20→17:31)
[2017-10-28] MEDS: Piperacillin/Tazobact 3.375 gm 100 ML IVPB SCH ×4 (05:47→23:48)
--- NOTE | 2017-10-28 09:46 | RAD ---
PROCEDURE: CHEST RADIOGRAPH, 1 VIEW HISTORY: fever COMPARISON: Comparison made with chest radiograph 10/24/2017 FINDINGS: LUNGS: Clear. PLEURA: No pneumothorax or pleural fluid seen. CARDIOVASCULAR: Normal. OSSEOUS STRUCTURES: No significant abnormalities. VISUALIZED UPPER ABDOMEN: Normal. OTHER FINDINGS: None. IMPRESSION: No active disease.
--- NOTE | 2017-10-28 09:51 | PN ---
DATE: 10/28/2017 SUBJECTIVE: The patient is seen earlier this morning. She had a fever late last night. No chills. She states she feels fine. No abdominal pain, diarrhea or constipation. PHYSICAL EXAMINATION: VITAL SIGNS: Temperature is 100.6, blood pressure is 150/60, respiratory rate of 18, heart rate of 89. HEENT: Examination of HEENT is unremarkable. NECK: Supple. LUNGS: Have decreased breath sounds. HEART: Normal S1, S2. ABDOMEN: Soft, nontender. EXTREMITIES: Examination of foot is noted. LABORATORY DATA: Laboratory examination reveals a white count of 6.1, a hemoglobin 11 and platelets of 178 and chemistries reveals a BUN of 18, creatinine of 0.9. Microbiology reveals a gram-positive cocci from the bone culture. The blood cultures have no growth. The patient is on vancomycin and Zosyn. ASSESSMENT AND PLAN: A 67-year-old with a left foot digit osteomyelitis with gram-positive cocci in a diabetic, status post amputation with Charcot's foot, hypertensive, obesity, body mass index of 32. Currently, on vancomycin and Zosyn. Awaiting for identification and sensitivity of the gram-positive cocci and now with new fevers of 100.6. We will repeat pancultures and chest x-ray, blood, urine, sputum, procalcitonin. The patient is not looking toxic. We will repeat septic workup, blood, urinalysis, urine cultures, sputum culture, chest x-ray and blood cultures and procalcitonin. Continue the vancomycin and Zosyn and we will make further recommendations. Cedrick Ramírez MD
[2017-10-28] MEDS: Insulin Reg-MEDIUM-Coverage SC SCH ×4 (10:14→22:00)
[2017-10-28] MEDS: GlipiZIDE 5 mg SR Tab PO SCH (10:21)
[2017-10-28 10:55] LABS: BASO # 0.01 K/mm3 (0.0-2.0); BASO % 0.1 % (0.0-3.0); EOS # 0.2 (0.0-0.7); EOS % 2.9 % (1.5-5.0); GRAN # 6.01 (1.4-6.5); GRAN % 83.1 % (50.0-68.0); LYMPH # 0.7 (1.2-3.4); LYMPH % 9.9 % (22.0-35.0); MEAN CELL VOLUME 82.4 fl (80.0-105.0); MEAN CORPUSCULAR HEMOGLOBIN 27.5 pg (25.0-35.0); MEAN CORPUSCULAR HGB CONC 33.3 g/dl (31.0-37.0); MEAN PLATELET VOLUME 9.5 fl (7.0-11.0); MONO # 0.3 (0.1-0.6); RBC 4.37 10^6/uL (3.5-6.1); RED CELL DISTRIBUTION WIDTH 13.3 % (11.5-14.5); WHITE BLOOD COUNT 7.2 10^3/ul (4.5-11.0)
--- NOTE | 2017-10-28 11:02 | CP.PCM.PN ---
Subjective - Date & Time of Evaluation Date of Evaluation: 10/28/17 Time of Evaluation: 10:59 - Subjective Subjective: Podiatry Progress Note for Dr. Ji 67F seen in bed POD #2 left fourth digit partial amputation and plantar right foot superficial diabetic ulceration. Patient is AAO x 3 and NAD. Denies any acute overnight events or new complaints. Denies any recent N/V/F/C/CP/SOB/D. States that she has been wearing her surgical and offloading shoe when ambulating as instructed Objective - Vital Signs/Intake and Output Vital Signs (last 24 hours): Temp Pulse Resp BP Pulse Ox 98.2 F 88 20 136/62 100 10/28/17 06:00 10/28/17 10:21 10/28/17 06:00 10/28/17 10:21 10/28/17 06:00 Intake and Output: 10/28/17 10/28/17 06:59 18:59 Intake Total 480 Balance 480 - Medications Medications: Current Medications Acetaminophen (Tylenol 325mg Tab) 650 mg PO Q4H PRN PRN Reason: Fever >100.4 F Last Admin: 10/27/17 23:47 Dose: 650 mg Alprazolam (Xanax) 0.25 mg PO BID PRN; Protocol PRN Reason: Anxiety Stop: 10/31/17 12:58 Last Admin: 10/27/17 07:36 Dose: 0.25 mg Aspirin (Ecotrin) 81 mg PO DAILY [facility] Last Admin: 10/28/17 10:22 Dose: 81 mg Atorvastatin Calcium (Lipitor) 40 mg PO DAILY [facility] Last Admin: 10/28/17 10:20 Dose: 40 mg Clopidogrel Bisulfate (Plavix) 75 mg PO DAILY [facility] Last Admin: 10/28/17 10:22 Dose: 75 mg Glipizide (Glucotrol Xl) 5 mg PO DAILY [facility] Last Admin: 10/28/17 10:21 Dose: 5 mg Vancomycin HCl (Vancomycin 1gm) 1 gm in 250 mls @ 167 mls/hr IVPB Q12H [facility] PRN Reason: Protocol Stop: 11/04/17 16:46 Last Admin: 10/28/17 04:20 Dose: 167 mls/hr Piperacillin Sod/Tazobactam Sod (Zosyn 3.375 In Ns 100ml) 100 mls @ 200 mls/hr IVPB Q6 [facility] PRN Reason: Protocol Stop: 11/04/17 18:01 Last Admin: 10/28/17 05:47 Dose: 200 mls/hr Insulin Human Regular (Humulin R Med) 0 units SC ACHS [facility] PRN Reason: Protocol Last Admin: 10/28/17 10:14 Dose: Not Given Metoprolol Tartrate (Lopressor) 25 mg PO BID [facility] Last Admin: 10/28/17 10:21 Dose: 25 mg Ondansetron HCl (Zofran Inj) 4 mg IVP ONCE PRN PRN Reason: Nausea/Vomiting Oxycodone/Acetaminophen (Percocet 5/325 Mg Tab) 1 tab PO Q4H PRN PRN Reason: Pain, moderate (4-7) Stop: 10/29/17 10:06 Oxycodone/Acetaminophen (Percocet 5/325 Mg Tab) 2 tab PO Q4H PRN PRN Reason: Pain, severe (8-10) Stop: 10/29/17 10:06 Tramadol HCl (Ultram) 50 mg PO TID [facility] Last Admin: 10/28/17 10:21 Dose: 50 mg - Labs Labs: 10/28/17 10:46 10/27/17 06:15 PT 12.3 SECONDS (9.4-12.5) 10/24/17 11:34 INR 1.07 (0.93-1.08) 10/24/17 11:34 APTT 26.9 Seconds (25.1-36.5) 10/24/17 11:34 - Constitutional Appears: Well, Non-toxic, No Acute Distress - Head Exam Head Exam: ATRAUMATIC, NORMOCEPHALIC - Extremities Exam Additional comments: VASC: DP/PT 2/4 to right, DP and PT 1/4 to left, temperature gradient warm to cool from proximal knees to distal toes WNL, minimal edema to the left 4th digit ORTHO: no pain with palpation to the LE at left 4th digit and right foot ulceration site, MM is 5/5 in all four compartments, patient able to wiggle toes , medial deviation of the 2nd and 3rd digit, 2>3, with crossing of 2nd digit over hallux NEURO: Epicritic and protective sensation grossly absent b/l DERM: left partial amputation of 4th digit surgical site is clean, skin is well reapproximated with no dehiscense, sutures intact, no erythema, no streaking, no purulence, no malodor right foot ulceration at sub met 4/5 measuring approximately 2 x 1.2 x .1 cm with wound base mainly granular, no active drainage, no odor, no erythema, no streaking, no tunneling, mild undermining, no abscess, no probe to bone, no clinical signs of infection - Neurological Exam Neurological Exam: Alert, Awake, Oriented x3 - Psychiatric Exam Psychiatric exam: Normal Affect, Normal Mood Assessment and Plan - Assessment and Plan (Free Text) Assessment: 67F seen in bed POD #2 left fourth digit partial amputation and plantar right foot superficial diabetic ulceration Plan: Patient seen and evaluated Plan discussed with attending Dr. Ji Febrile overnight, currently afebrile Absent leukocytosis Continue pain management per medical team Continue IV abx per ID Intra-op bone biopsy + for GP cocci Fourth digit amputation site intra op wound cx, no growth after 24 hours; f/u final results Post operative foot xray: No complicating factors R plantar ulcer dressed with optifoam Left foot amputation site dressed with adaptic, DSD No plan for further surgical intervention at this time Podiatry will continue to follow while patient in house Upon discharge, patient will follow up with Dr. Ji in his private office
[2017-10-28 11:06] LABS: ALB/GLOB RATIO 1.1 (1.1-1.8); ALBUMIN 3.9 g/dL (3.0-4.8); ALT/SGPT 28 U/L (7-56); AST/SGOT 20 U/L (14-36); BLOOD UREA NITROGEN 15 mg/dL (7-21); CALCIUM 8.6 mg/dL (8.4-10.5); GFR AFRICAN-AMERICAN > 60; GFR NON-AFRICAN AMERICAN > 60
--- NOTE | 2017-10-28 13:38 | PN ---
SUBJECTIVE: The patient was seen and examined at bedside on the general medical estevez. No acute events overnight. She remains afebrile and hemodynamically stable. This morning she feels well and offers no complaints. OBJECTIVE: VITAL SIGNS: Temperature 98.2, pulse 88, blood pressure 136/62, respiratory rate 20, oxygen saturation 100% on room air. GENERAL: No apparent distress. HEENT: PERRL, EOMI. No scleral icterus. No conjunctival pallor. NECK: Supple with full range of motion. No JVD. No bruits. LUNGS: Clear to auscultation. CARDIOVASCULAR: Regular rate and rhythm. Normal S1 and S2. ABDOMEN: Normoactive bowel sounds. Soft, nontender and nondistended. EXTREMITIES: Surgical dressing in place. NEUROLOGIC: Awake, alert and oriented x 3. No focal motor deficits. LABORATORY DATA: WBC 7.2, hemoglobin 12, hematocrit 36, platelets 179. Chemistry reviewed and unremarkable. Blood cultures with no growth to date. Intraoperative bone culture with gram-positive cocci. ASSESSMENT: The patient is a 67 year old woman with a past medical history of NIDDM, HTN, hyperlipidemia and CAD s/p PCI with stent placement who was sent to the ED by her commercial real estate sales manager for continued management of a chronic nonhealing left foot ulcer and was admitted for management of osteomyelitis of the left 4th toe who is now s/p amputation of the left 4th toe POD #4. PLAN: 1. Osteomyelitis of the left 4th toe s/p amputation POD #4. Continue with postoperative care as per Dr. Ji. Input from Dr. Ramírez noted and appreciated and the patient remains on Vancomycin and Zosyn. We will wait the final culture reports and adjust the antimicrobials as needed. 2. NIDDM, with most recent A1c of 7.8. Continue Glipizide XL 5 mg p.o. daily and medium-dose insulin sliding scale for coverage. 3. CAD s/p PCI with multiple stent placement. Continue Lipitor 40 mg p.o. daily, Metoprolol 25 mg p.o. b.i.d., Aspirin 81 mg p.o. daily and Plavix 75 mg p.o. daily. 4. Hypertension. Blood pressure controlled. Continue Metoprolol 25 mg p.o. b.i.d. 5. Hyperlipidemia. Continue Lipitor 40 mg p.o. daily. 6. Anxiety disorder. Continue Xanax 0.25 mg p.o. b.i.d. 7. Prophylaxis. GI prophylaxis is not indicated as the patient is eating. DVT prophylaxis is not indicated as the patient is ambulatory. CODE STATUS: Full code. Atul Mckeon MD MTDMaria Teresa
[2017-10-28 22:11] LABS: URINE APPEARANCE CLEAR (CLEAR); URINE BILIRUBIN NEGATIVE (NEGATIVE); URINE BLOOD TRACE-INTACT (NEGATIVE); URINE COLOR LIGHT YELLOW (YELLOW); URINE GLUCOSE (UA) NEGATIVE (NEGATIVE); URINE LEUKOCYTE ESTERASE NEGATIVE Leu/uL (NEGATIVE); URINE PROTEIN NEGATIVE mg/dL (<30 mg/dL); URINE UROBILINOGEN 0.2 E.U./dL (<1 E.U./dL)
[2017-10-28 22:18] LABS: URINE RBC 0 - 2 /hpf (0-2); URINE WBC NEGATIVE /hpf (0-6)
[2017-10-29] MEDS: Piperacillin/Tazobact 3.375 gm 100 ML IVPB SCH ×4 (05:19→23:15)
[2017-10-29] MEDS: Vancomycin 1gm in NS 250ml 1 GM/250 ML BAG IVPB SCH ×2 (05:49→17:05)
[2017-10-29] MEDS: Insulin Reg-MEDIUM-Coverage SC SCH ×4 (08:36→23:04)
[2017-10-29 09:08] LABS: BASO # 0.01 K/mm3 (0.0-2.0); BASO % 0.1 % (0.0-3.0); EOS # 0.3 (0.0-0.7); EOS % 4.3 % (1.5-5.0); GRAN # 5.41 (1.4-6.5); GRAN % 80.4 % (50.0-68.0); HEMOGLOBIN 11.6 g/dL (12.0-16.0); LYMPH # 0.3 (1.2-3.4); LYMPH % 4.7 % (22.0-35.0); MEAN CELL VOLUME 81.3 fl (80.0-105.0); MEAN CORPUSCULAR HEMOGLOBIN 27.8 pg (25.0-35.0); MEAN CORPUSCULAR HGB CONC 34.1 g/dl (31.0-37.0); MEAN PLATELET VOLUME 9.3 fl (7.0-11.0); MONO # 0.7 (0.1-0.6); MONO % 10.5 % (1.0-6.0); PLATELET COUNT 151 10^3/uL (120.0-450.0); RBC 4.18 10^6/uL (3.5-6.1); RED CELL DISTRIBUTION WIDTH 13.6 % (11.5-14.5); WHITE BLOOD COUNT 6.7 10^3/ul (4.5-11.0)
[2017-10-29 09:16] LABS: ALB/GLOB RATIO 1.1 (1.1-1.8); ALBUMIN 3.6 g/dL (3.0-4.8); ALT/SGPT 30 U/L (7-56); AST/SGOT 24 U/L (14-36); BLOOD UREA NITROGEN 14 mg/dL (7-21); CALCIUM 8.3 mg/dL (8.4-10.5); GFR AFRICAN-AMERICAN > 60; GFR NON-AFRICAN AMERICAN > 60
[2017-10-29 09:22] LABS: EOSINOPHIL 3 % (0.0-3.0); LYMPHOCYTE 8 % (22.0-35.0); MONOCYTE 6 % (1.0-6.0); NEUTROPHIL 83 % (50.0-70.0)
[2017-10-29 09:23] LABS: PLATELET ESTIMATE NORMAL (NORMAL)
[2017-10-29] MEDS: GlipiZIDE 5 mg SR Tab PO SCH (10:25)
--- NOTE | 2017-10-29 11:47 | PN ---
DATE: 10/29/2017 SUBJECTIVE: The patient is seen earlier this morning. She is doing well. No fevers and no chills. PHYSICAL EXAMINATION: VITAL SIGNS: Temperature is 98, blood pressure is 160/70, respiratory rate 20, heart rate of 99. HEENT: Unremarkable. NECK: Supple. LUNGS: Have decreased breath sounds. HEART: Normal S1, S2. ABDOMEN: Soft, nontender. EXTREMITIES: Examination of foot is noted. LABORATORY EXAMINATION: Reveals a white count of 6.7, hemoglobin of 11, platelets of 151. Sed rate is 53, BUN of 14, creatinine of 0.6, procalcitonin is 0.06. Urinalysis is noted and microbiology reveals the bone culture is positive for MRSA. It is sensitive to linezolid and the pathology is pending. C-reactive protein is elevated at 9.34. ASSESSMENT AND PLAN: A 67-year-old female with left foot digit osteomyelitis with methicillin-resistant Staphylococcus aureus, status post amputation; Charcot foot with hypertension and obesity. Currently, on vancomycin and Zosyn and we will place the patient on methicillin-resistant Staphylococcus aureus isolation and contact isolation. Pending the pathology, if the pathology is margins of the bone or free of osteo, maybe able to switch to p.o. and complete 5-7 days of antibiotics postprocedure. If the pathology's margins have osteomyelitis, we will need to treat osteo for 4-6 weeks with a weekly sed rate, C-reactive protein and chemistries and CBC. We will also order a vancomycin trough level. The patient receives her vancomycin at 4:45 a.m. and 4:45 p.m. We will order one at 3:45 today an hour before the p.m. dose. Dr. Atul Mckeon's note from yesterday is reviewed. We will follow with you. Cedrick Ramírez MD
--- NOTE | 2017-10-29 13:24 | CP.PCM.PN ---
Subjective - Date & Time of Evaluation Date of Evaluation: 10/29/17 Time of Evaluation: 13:20 - Subjective Subjective: Podiatry Progress Note for Dr. Ji 67F seen in bed POD #3 left fourth digit partial amputation and plantar right foot superficial diabetic ulceration. Patient is AAO x 3 and NAD. Denies any acute overnight events or new complaints. Denies any recent N/V/F/C/CP/SOB/D. States that she is very concerned because nurse told her she has MRSA Objective - Vital Signs/Intake and Output Vital Signs (last 24 hours): Temp Pulse Resp BP Pulse Ox 98.8 F 99 H 20 161/76 H 100 10/29/17 06:00 10/29/17 10:25 10/29/17 06:00 10/29/17 10:25 10/29/17 06:00 Intake and Output: 10/29/17 10/29/17 06:59 18:59 Intake Total 1660 Balance 1660 - Medications Medications: Current Medications Acetaminophen (Tylenol 325mg Tab) 650 mg PO Q4H PRN PRN Reason: Fever >100.4 F Last Admin: 10/27/17 23:47 Dose: 650 mg Alprazolam (Xanax) 0.25 mg PO BID PRN; Protocol PRN Reason: Anxiety Stop: 10/31/17 12:58 Last Admin: 10/29/17 11:46 Dose: 0.25 mg Aspirin (Ecotrin) 81 mg PO DAILY [facility] Last Admin: 10/29/17 10:24 Dose: 81 mg Atorvastatin Calcium (Lipitor) 40 mg PO DAILY [facility] Last Admin: 10/29/17 10:24 Dose: 40 mg Clopidogrel Bisulfate (Plavix) 75 mg PO DAILY [facility] Last Admin: 10/29/17 10:24 Dose: 75 mg Glipizide (Glucotrol Xl) 5 mg PO DAILY [facility] Last Admin: 10/29/17 10:25 Dose: 5 mg Vancomycin HCl (Vancomycin 1gm) 1 gm in 250 mls @ 167 mls/hr IVPB Q12H [facility] PRN Reason: Protocol Stop: 11/04/17 16:46 Last Admin: 10/29/17 05:49 Dose: 167 mls/hr Piperacillin Sod/Tazobactam Sod (Zosyn 3.375 In Ns 100ml) 100 mls @ 200 mls/hr IVPB Q6 [facility] PRN Reason: Protocol Stop: 11/04/17 18:01 Last Admin: 10/29/17 11:46 Dose: 200 mls/hr Insulin Human Regular (Humulin R Med) 0 units SC ACHS [facility] PRN Reason: Protocol Last Admin: 10/29/17 11:46 Dose: 2 units Metoprolol Tartrate (Lopressor) 25 mg PO BID [facility] Last Admin: 10/29/17 10:25 Dose: 25 mg Ondansetron HCl (Zofran Inj) 4 mg IVP ONCE PRN PRN Reason: Nausea/Vomiting Tramadol HCl (Ultram) 50 mg PO TID [facility] Last Admin: 10/29/17 10:26 Dose: 50 mg - Labs Labs: 10/29/17 09:02 10/29/17 09:02 PT 12.3 SECONDS (9.4-12.5) 10/24/17 11:34 INR 1.07 (0.93-1.08) 10/24/17 11:34 APTT 26.9 Seconds (25.1-36.5) 10/24/17 11:34 - Constitutional Appears: Well, Non-toxic, No Acute Distress - Head Exam Head Exam: ATRAUMATIC, NORMOCEPHALIC - Extremities Exam Additional comments: VASC: DP/PT 2/4 to right, DP and PT 1/4 to left, temperature gradient warm to cool from proximal knees to distal toes WNL, minimal edema to the left 4th digit ORTHO: no pain with palpation to the LE at left 4th digit and right foot ulceration site, MM is 5/5 in all four compartments, patient able to wiggle toes , medial deviation of the 2nd and 3rd digit, 2>3, with crossing of 2nd digit over hallux NEURO: Epicritic and protective sensation grossly absent b/l DERM: left partial amputation of 4th digit surgical site is clean, skin is well reapproximated with no dehiscense, sutures intact, no erythema, no streaking, no purulence, no malodor right foot ulceration at sub met 4/5 measuring approximately 2 x 1.2 x .1 cm with wound base mainly granular, no active drainage, no odor, no erythema, no streaking, no tunneling, mild undermining, no abscess, no probe to bone, no clinical signs of infection - Neurological Exam Neurological Exam: Alert, Awake, Oriented x3 - Psychiatric Exam Psychiatric exam: Normal Affect, Normal Mood Assessment and Plan - Assessment and Plan (Free Text) Assessment: 67F seen in bed POD #3 left fourth digit partial amputation and plantar right foot superficial diabetic ulceration Plan: Patient seen and evaluated Plan discussed with attending Dr. Ji Afebrile Absent leukocytosis Continue pain management per medical team Continue IV abx per ID Intra-op bone biopsy + for MRSA Fourth digit amputation site intra op wound cx, no growth after 24 hours; f/u final results Post operative foot xray: No complicating factors R plantar ulcer dressed with optifoam Left foot amputation site dressed with adaptic, DSD No plan for further surgical intervention at this time Podiatry will continue to follow while patient in house Upon discharge, patient will follow up with Dr. Ji in his private office
--- NOTE | 2017-10-29 20:56 | PN ---
DATE: 10/29/2017 SUBJECTIVE: The patient is lying comfortably in bed, has no complaints. There have been no acute events overnight. PHYSICAL EXAMINATION: VITAL SIGNS: Temperature 98.8, pulse rate of 99, blood pressure 161/76, respiratory rate of 20, O2 saturation 100% on room air. HEENT: Unremarkable. NECK: Supple with full range of motion. LUNGS: Clear bilaterally. HEART: Regular rate and rhythm. No murmurs, rubs or gallops. ABDOMEN: Soft, nontender. No organomegaly. There is no bandage covering the wound. EXTREMITIES: The patient has Unna boots on both feet with the left extremity wrapped in surgical wrap. NEUROLOGIC: The patient is intact. LABORATORY DATA: Show WBC of 6.7, hemoglobin and hematocrit of 11.6 and 34. Chemistry shows a nonfasting glucose of 201, otherwise it is unremarkable. The patient has had two positive tissue culture and wound culture on 10/26. Blood cultures done on 10/28 showed no growth. IMPRESSION: At this time is; 1. Osteomyelitis of the toe, left foot. 2. Diabetes mellitus. PLAN: Continue the current treatment. Waiting for cath report. Tip Mckeon MD
[2017-10-30] MEDS: Vancomycin 1gm in NS 250ml 1 GM/250 ML BAG IVPB SCH (04:57)
[2017-10-30] MEDS: Piperacillin/Tazobact 3.375 gm 100 ML IVPB SCH (06:41)
[2017-10-30 07:05] LABS: BASO # 0.04 K/mm3 (0.0-2.0); BASO % 0.7 % (0.0-3.0); EOS # 0.3 (0.0-0.7); GRAN # 3.75 (1.4-6.5); GRAN % 65.8 % (50.0-68.0); HEMOGLOBIN 10.2 g/dL (12.0-16.0); LYMPH # 0.8 (1.2-3.4); LYMPH % 14.2 % (22.0-35.0); MEAN CELL VOLUME 80.9 fl (80.0-105.0); MEAN CORPUSCULAR HEMOGLOBIN 27.1 pg (25.0-35.0); MEAN CORPUSCULAR HGB CONC 33.6 g/dl (31.0-37.0); MEAN PLATELET VOLUME 9.6 fl (7.0-11.0); MONO # 0.8 (0.1-0.6); MONO % 13.3 % (1.0-6.0); RBC 3.76 10^6/uL (3.5-6.1); RED CELL DISTRIBUTION WIDTH 13.6 % (11.5-14.5); WHITE BLOOD COUNT 5.7 10^3/ul (4.5-11.0)
[2017-10-30 07:38] LABS: ALB/GLOB RATIO 0.9 (1.1-1.8); ALT/SGPT 58 U/L (7-56); AST/SGOT 60 U/L (14-36); BLOOD UREA NITROGEN 12 mg/dL (7-21); CALCIUM 8.1 mg/dL (8.4-10.5); GFR AFRICAN-AMERICAN > 60; GFR NON-AFRICAN AMERICAN > 60
[2017-10-30] MEDS: Insulin Reg-MEDIUM-Coverage SC SCH ×4 (08:39→21:22)
[2017-10-30] MEDS: GlipiZIDE 5 mg SR Tab PO SCH (09:37)
--- NOTE | 2017-10-30 10:09 | PN ---
DATE: 10/30/2017 SUBJECTIVE: The patient is in bed, in no acute distress, was seen earlier. She is doing well. No fevers and chills. PHYSICAL EXAMINATION: VITAL SIGNS: Temperature is 99, blood pressure is 150/60, respiratory rate of 20. HEENT: Examination of HEENT is unremarkable. NECK: Supple. LUNGS: Have decreased breath sounds. HEART: Normal S1, S2. ABDOMEN: Soft, nontender. LABORATORY DATA: Laboratory examination reveals the patient's white count is 5.7. Sed rate of 53. Chemistries are noted. The patient's procalcitonin 0.06. Urinalysis is noted. Vanco trough from yesterday is 10. Microbiology reveals MRSA from both the bone culture and toe culture and pathology is pending. Dr. Tip Mckeon's note from yesterday is reviewed. Dr. Armand Antonio's progress note from yesterday is reviewed. ASSESSMENT AND PLAN: A 67-year-old female with left foot osteomyelitis with methicillin-resistant Staphylococcus aureus, status post amputation with Charcot's foot and hypertension and obesity, on vancomycin and Zosyn. We will discontinue the vancomycin and Zosyn hence the vancomycin level is inadequate at 10 for this patient with methicillin-resistant Staphylococcus aureus. Review of orders reveals the patient is not on any antidepressants. She is on tramadol. We will discontinue the tramadol and we will start the patient on Zyvox. The patient does have methicillin-resistant Staphylococcus aureus from the bone culture; however, the pathology is still pending. If the margins of the pathology is consistent with osteomyelitis, will need 4-6 weeks of antibiotics with a weekly sedimentation rate and C-reactive protein and chemistries and CBC. If the margin is free of any osteomyelitis and may complete p.o. antibiotics currently. We will start p.o. Zyvox; however, that may need to be changed based on the pathology report if the pathology report margins are free 5-7 days. However, if they have osteomyelitis, will need prolonged antibiotics. We will stop the tramadol due to possible drug to drug interaction with Zyvox and tramadol. Cedrick Ramírez MD
--- NOTE | 2017-10-30 10:48 | CP.PCM.PN ---
Subjective - Date & Time of Evaluation Date of Evaluation: 10/30/17 Time of Evaluation: 10:42 - Subjective Subjective: Podiatry Progress Note for Dr. Ji 67F seen in bed POD #4 left fourth digit partial amputation and plantar right foot superficial diabetic ulceration. Patient is AAO x 3 and NAD. Denies any acute overnight events or new complaints. Denies any recent N/V/F/C/CP/SOB/D. States that she has been walking with her surgical and offloading shoe regularly Objective - Vital Signs/Intake and Output Vital Signs (last 24 hours): Temp Pulse Resp BP Pulse Ox 99.6 F 92 H 20 150/92 H 96 10/30/17 08:04 10/30/17 09:37 10/30/17 08:04 10/30/17 09:37 10/30/17 08:04 Intake and Output: 10/30/17 10/30/17 06:59 18:59 Intake Total 1580 Balance 1580 - Medications Medications: Current Medications Acetaminophen (Tylenol 325mg Tab) 650 mg PO Q4H PRN PRN Reason: Fever >100.4 F Last Admin: 10/27/17 23:47 Dose: 650 mg Alprazolam (Xanax) 0.25 mg PO BID PRN; Protocol PRN Reason: Anxiety Stop: 10/31/17 12:58 Last Admin: 10/29/17 11:46 Dose: 0.25 mg Aspirin (Ecotrin) 81 mg PO DAILY [facility] Last Admin: 10/30/17 09:36 Dose: 81 mg Atorvastatin Calcium (Lipitor) 40 mg PO DAILY [facility] Last Admin: 10/30/17 09:36 Dose: 40 mg Clopidogrel Bisulfate (Plavix) 75 mg PO DAILY [facility] Last Admin: 10/30/17 09:36 Dose: 75 mg Glipizide (Glucotrol Xl) 5 mg PO DAILY [facility] Last Admin: 10/30/17 09:37 Dose: 5 mg Insulin Human Regular (Humulin R Med) 0 units SC [facility] PRN Reason: Protocol Last Admin: 10/30/17 08:39 Dose: Not Given Linezolid (Zyvox) 600 mg PO BID [facility] PRN Reason: Protocol Stop: 11/06/17 10:01 Last Admin: 10/30/17 09:36 Dose: 600 mg Metoprolol Tartrate (Lopressor) 25 mg PO BID [facility] Last Admin: 10/30/17 09:37 Dose: 25 mg Ondansetron HCl (Zofran Inj) 4 mg IVP ONCE PRN PRN Reason: Nausea/Vomiting - Labs Labs: 10/30/17 06:00 10/30/17 06:00 PT 12.3 SECONDS (9.4-12.5) 10/24/17 11:34 INR 1.07 (0.93-1.08) 10/24/17 11:34 APTT 26.9 Seconds (25.1-36.5) 10/24/17 11:34 - Constitutional Appears: Well, Non-toxic, No Acute Distress - Head Exam Head Exam: ATRAUMATIC, NORMOCEPHALIC - Extremities Exam Additional comments: VASC: DP/PT 2/4 to right, DP and PT 1/4 to left, temperature gradient warm to cool from proximal knees to distal toes WNL, minimal edema to the left 4th digit ORTHO: no pain with palpation to the LE at left 4th digit and right foot ulceration site, MM is 5/5 in all four compartments, patient able to wiggle toes , medial deviation of the 2nd and 3rd digit, 2>3, with crossing of 2nd digit over hallux NEURO: Epicritic and protective sensation grossly absent b/l DERM: left partial amputation of 4th digit surgical site is clean, skin is well reapproximated with no dehiscense, sutures intact, minimal erythema to base of digit, no streaking, no purulence, no malodor right foot ulceration at sub met 4/5 measuring approximately 2 x 1.2 x .1 cm with wound base mainly granular, no active drainage, no odor, no erythema, no streaking, no tunneling, mild undermining, no abscess, no probe to bone, no clinical signs of infection - Neurological Exam Neurological Exam: Alert, Awake, Oriented x3 - Psychiatric Exam Psychiatric exam: Normal Affect, Normal Mood Assessment and Plan - Assessment and Plan (Free Text) Assessment: 67F seen in bed POD #4 left fourth digit partial amputation and plantar right foot superficial diabetic ulceration Plan: Patient seen and evaluated Plan discussed with attending Dr. Ji Afebrile Absent leukocytosis Continue pain management per medical team Continue IV abx per ID Intra-op bone biopsy and wound cx + for MRSA Blood cx no growth at 24 hrs x 2 Post operative foot xray: No complicating factors R plantar ulcer dressed with optifoam Left foot amputation site dressed with adaptic, DSD No plan for further surgical intervention at this time Podiatry will continue to follow while patient in house Upon discharge, patient will follow up with Dr. Ji in his private office
--- NOTE | 2017-10-30 16:15 | PN ---
SUBJECTIVE: The patient was seen and examined at bedside on the general medical estevez. No acute events overnight. She remains afebrile and hemodynamically stable and is doing well postoperatively. PHYSICAL EXAMINATION VITAL SIGNS: Temperature 99.6, pulse 92, blood pressure 150/92, respiratory rate 20, oxygen saturation 96% on room air. GENERAL: No apparent distress. HEENT: PERRL. EOMI. No scleral icterus. No conjunctival pallor. NECK: No JVD. No bruits. LUNGS: Clear to auscultation. CARDIOVASCULAR: Regular rate and rhythm. Normal S1 and S2. ABDOMEN: Normoactive bowel sounds. Soft, nontender and nondistended. EXTREMITIES: No edema. Surgical site appears clean, dry and intact. NEUROLOGIC: Awake, alert and oriented x 3. No focal motor deficits. LABORATORY DATA: WBC 5.7, hemoglobin 10, hematocrit 30, platelets 147. Chemistry reviewed and unremarkable. Blood cultures with no growth to date. Bone culture with MRSA. ASSESSMENT: The patient is a 67 year old woman with a past medical history of NIDDM, HTN, hyperlipidemia and CAD s/p PCI with stent placement who was sent to the ED by her underground repairer for continued management of a chronic nonhealing left foot ulcer and was admitted for management of osteomyelitis of the left 4th toe who is now s/p amputation of the left 4th toe POD #5. PLAN: 1. Osteomyelitis of the left 4th toe s/p amputation POD #5. Continue with postoperative care as per Dr. Ji and the podiatric team. Input from Dr. Ramírez appreciated and the patient remains on Zyvox. The duration of antimicrobial therapy will depend on the results of the pathology report and if the margins are clean. 2. NIDDM, with most recent A1c of 7.8. Continue Glipizide XL 5 mg p.o. daily and medium-dose insulin sliding scale for coverage. 3. CAD s/p PCI with stent placement. Continue Lipitor 40 mg p.o. daily, Metoprolol 25 mg p.o. b.i.d., Aspirin 81 mg p.o. daily and Plavix 75 mg p.o. daily. 4. Hypertension. Blood pressure controlled. Continue Metoprolol 25 mg p.o. b.i.d. 5. Hyperlipidemia. Continue Lipitor 40 mg p.o. daily. 6. Anxiety disorder. Continue Xanax 0.25 mg p.o. b.i.d. 7. Prophylaxis. GI prophylaxis is not indicated as the patient is eating. DVT prophylaxis is not indicated as the patient is ambulatory. CODE STATUS: Full code. Atul Mckeon MD MT[facility] Teresa
[2017-10-30 22:19] VITALS: RESP 20
[2017-10-31 06:40] LABS: BASO # 0.22 K/mm3 (0.0-2.0); BASO % 2.5 % (0.0-3.0); EOS # 0.5 (0.0-0.7); EOS % 6.1 % (1.5-5.0); GRAN # 3.65 (1.4-6.5); GRAN % 42.4 % (50.0-68.0); HEMOGLOBIN 10.2 g/dL (12.0-16.0); LYMPH % 34.1 % (22.0-35.0); MEAN CELL VOLUME 80.5 fl (80.0-105.0); MEAN CORPUSCULAR HEMOGLOBIN 26.9 pg (25.0-35.0); MEAN CORPUSCULAR HGB CONC 33.4 g/dl (31.0-37.0); MEAN PLATELET VOLUME 9.4 fl (7.0-11.0); MONO # 1.3 (0.1-0.6); MONO % 14.9 % (1.0-6.0); RBC 3.79 10^6/uL (3.5-6.1); RED CELL DISTRIBUTION WIDTH 13.7 % (11.5-14.5); WHITE BLOOD COUNT 8.6 10^3/ul (4.5-11.0)
[2017-10-31 06:53] LABS: ALB/GLOB RATIO 0.9 (1.1-1.8); ALT/SGPT 139 U/L (7-56); AST/SGOT 121 U/L (14-36); BLOOD UREA NITROGEN 9 mg/dL (7-21); CALCIUM 8.4 mg/dL (8.4-10.5); GFR AFRICAN-AMERICAN > 60; GFR NON-AFRICAN AMERICAN > 60
[2017-10-31 07:59] VITALS: O2SAT 98
[2017-10-31] MEDS: Insulin Reg-MEDIUM-Coverage SC SCH ×3 (08:17→16:46)
[2017-10-31] MEDS: GlipiZIDE 5 mg SR Tab PO SCH (10:11)
--- NOTE | 2017-10-31 13:06 | PN ---
SUBJECTIVE: The patient was seen and examined at bedside on the general medical estevez. No acute events overnight. She remains afebrile and hemodynamically stable. This morning she feels great and offers no complaints. PHYSICAL EXAMINATION VITAL SIGNS: Temperature 98.1, pulse 72, blood pressure 149/61, respiratory rate 20, oxygen saturation 98% on room air. GENERAL: No apparent distress. HEENT: PERRL. EOMI. No scleral icterus. No conjunctival pallor. NECK: No JVD. No bruits. LUNGS: Clear to auscultation. CARDIOVASCULAR: Regular rate and rhythm. Normal S1 and S2. ABDOMEN: Normoactive bowel sounds. Soft, nontender, nondistended. EXTREMITIES: No edema. Surgical site appears clean, dry and intact. NEUROLOGIC: Awake, alert, and oriented x 3. No focal motor deficits. LABORATORY DATA: WBC 8.6, hemoglobin 10, hematocrit 30, platelets 147. Chemistry reviewed and unremarkable. Blood cultures are no growth to date. Bone culture with MRSA. 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 PLAN: 1. Osteomyelitis of the left 4th toe s/p amputation POD #6. Continue with postoperative care as per Dr. Ji and the podiatric team. Input from Dr. Ramírez appreciated and the patient remains on Zyvox pending pathology reports. The duration of antimicrobial therapy will depend on the results of the pathology report and whether the margins are clean. 2. NIDDM, with most recent A1c of 7.8. Continue Glipizide XL 5 mg p.o. daily and medium-dose insulin sliding scale for coverage. 3. CAD s/p PCI with stent placement. Continue Lipitor 40 mg p.o. daily, Metoprolol 25 mg p.o. b.i.d., Aspirin 81 mg p.o. daily and Plavix 75 mg p.o. daily. 4. Hypertension. Continue Metoprolol 25 mg p.o. b.i.d. 5. Hyperlipidemia. Continue Lipitor 40 mg p.o. daily. 6. Anxiety disorder. Continue Xanax 0.25 mg p.o. b.i.d. 7. Prophylaxis. GI prophylaxis is not indicated as the patient is eating. DVT prophylaxis is not indicated as the patient is ambulatory. CODE STATUS: Full code. Atul Mckeon MD MTDD
[2017-10-31 14:40] VITALS: BP 151/74; PULSE 68; TEMP 97.7
--- NOTE | 2017-10-31 14:51 | CP.PCM.PN ---
Subjective - Date & Time of Evaluation Date of Evaluation: 10/31/17 Time of Evaluation: 07:40 - Subjective Subjective: Podiatry Progress Note for Dr. Ji 67F seen in bed POD #5 left fourth digit partial amputation and plantar right foot superficial diabetic ulceration. Patient is seen resting comfortably in bed , in NAD, and AAO x 3/ Denies any acute overnight events or new complaints. Denies any recent N/V/F/C/CP/SOB/D. Reports has continued to work with physical therapy. Objective - Vital Signs/Intake and Output Vital Signs (last 24 hours): Temp Pulse Resp BP Pulse Ox 97.7 F 68 20 151/74 H 98 10/31/17 14:00 10/31/17 14:00 10/31/17 14:00 10/31/17 14:00 10/31/17 14:00 Intake and Output: 10/31/17 10/31/17 06:59 18:59 Intake Total 780 Balance 780 - Medications Medications: Current Medications Acetaminophen (Tylenol 325mg Tab) 650 mg PO Q4H PRN PRN Reason: Fever >100.4 F Last Admin: 10/27/17 23:47 Dose: 650 mg Aspirin (Ecotrin) 81 mg PO DAILY [facility] Last Admin: 10/31/17 10:11 Dose: 81 mg Atorvastatin Calcium (Lipitor) 40 mg PO DAILY [facility] Last Admin: 10/31/17 10:11 Dose: 40 mg Clopidogrel Bisulfate (Plavix) 75 mg PO DAILY [facility] Last Admin: 10/31/17 10:11 Dose: 75 mg Glipizide (Glucotrol Xl) 5 mg PO DAILY [facility] Last Admin: 10/31/17 10:11 Dose: 5 mg Insulin Human Regular (Humulin R Med) 0 units SC [facility] PRN Reason: Protocol Last Admin: 10/31/17 11:37 Dose: 1 units Linezolid (Zyvox) 600 mg PO BID [facility] PRN Reason: Protocol Stop: 11/06/17 10:01 Last Admin: 10/31/17 10:11 Dose: 600 mg Metoprolol Tartrate (Lopressor) 25 mg PO BID [facility] Last Admin: 10/31/17 10:11 Dose: 25 mg Ondansetron HCl (Zofran Inj) 4 mg IVP ONCE PRN PRN Reason: Nausea/Vomiting - Labs Labs: 10/31/17 05:45 10/31/17 05:45 PT 12.3 SECONDS (9.4-12.5) 10/24/17 11:34 INR 1.07 (0.93-1.08) 10/24/17 11:34 APTT 26.9 Seconds (25.1-36.5) 10/24/17 11:34 - Constitutional Appears: Well, Non-toxic, No Acute Distress - Extremities Exam Extremities Exam: absent: Calf Tenderness Additional comments: VASC: DP/PT 2/4 to right, DP and PT 1/4 to left, temperature gradient warm to cool from proximal knees to distal toes WNL, minimal edema to the left 4th digit ORTHO: no pain with palpation to the LE at left 4th digit and right foot ulceration site, MM is 5/5 in all four compartments, patient able to wiggle toes , medial deviation of the 2nd and 3rd digit, 2>3, with crossing of 2nd digit over hallux NEURO: Epicritic and protective sensation grossly absent b/l DERM: left partial amputation of 4th digit surgical site is clean, skin is well reapproximated with no dehiscense, sutures intact, minimal erythema to base of digit, no streaking, no purulence, no malodor right foot ulceration at sub met 4/5 measuring approximately 2 x 1.2 x .1 cm with wound base mainly granular, no active drainage, no odor, no erythema, no streaking, no tunneling, mild undermining, no abscess, no probe to bone, no clinical signs of infection - Neurological Exam Neurological Exam: Alert, Awake, Oriented x3 - Psychiatric Exam Psychiatric exam: Normal Affect, Normal Mood Assessment and Plan - Assessment and Plan (Free Text) Assessment: 67F seen in bed POD #5 left fourth digit partial amputation and plantar right foot superficial diabetic ulceration Plan: Patient seen and evaluated Plan discussed with attending Dr. Ji Afebrile Absent leukocytosis Continue pain management per medical team Continue IV abx per ID Intra-op bone biopsy and wound cx + for MRSA Blood cx no growth at 24 hrs x 2 Post operative foot xray: No complicating factors R plantar ulcer dressed with optifoam Left foot amputation site dressed with adaptic, DSD No plan for further surgical intervention at this time Podiatry will continue to follow while patient in house Upon discharge, patient will follow up with Dr. Ji in his private office
--- NOTE | 2017-10-31 16:04 | PN ---
DATE: 10/31/2017 CARDIOLOGY FOLLOWUP SUBJECTIVE: The patient is asymptomatic. PHYSICAL EXAMINATION: VITAL SIGNS: Blood pressure 149/61, heart rates in the 70s. NECK: Negative JVD. LUNGS: Without rales. HEART: Reveals S1, S2. EXTREMITIES: Still bandaged. LABORATORY DATA: Hemoglobin is 10.2. Laboratories reviewed, glucose is 106. IMPRESSION: 1. Osteomyelitis of lower extremity. 2. Stable angina. 3. Coronary artery disease. 4. History of percutaneous transluminal coronary angioplasty. Given these findings, awaiting bacterial cultures status post bone surgery. The patient's cardiac status is stable. Andi Pearce MD
--- NOTE | 2017-11-01 00:13 | PCM.OP ---
Operative Report - Operative Report Date of Surgery/Procedure: 10/26/17 Time of Surgery/Procedure: 09:20 Surgeon: Dr. Margy GUNDESRON Hip Hop Dancer: Dr. Harjit GUNDERSON PGY-1, Mio MSY-4 Anesthesia/Sedation: Dr. Lofton IV Sedation with local Pre-Operative Diagnosis: left 4th digit osteomyelitis Post-Operative Diagnosis: same Indication for Surgery: The patient is a 67 year-old female with the above diagnoses. Patient was found to have osteomyelitis of left 4th digit. Patients 4th digit is erythematous with cellulitic changes. Patient has exhausted all conservative treatment at this time and now requires surgical intervention. The patient signed the consent after careful explanation of risks, benefits, complications and alternatives for surgical procedure. No guarantees were given nor implied. NPO status was confirmed prior to taking patient to the OR. Operative Findings: see below Procedure/Operation Description: Preparation: The patient was brought in to the operating room and placed on the operating room table in a supine position. Timeout was performed for identification of the correct patient and procedure. The patient received a total of 6 cc of 1:1 .5% marcaine plain and 1 % lidocaine plain left 4th digit in a local block fashion. The left foot was then prepped and draped in normal sterile manner and the procedure began. No tourniquet was used during the procedure.Procedure: Attention was then drawn to the dorsal aspect of the left 4th digit where a fish mouth type incision was made around the entire digit using a #15 blade at the level of the PIPJ. Using the #15 blade, the incision was extended down through the subcutaneous layers down to the level of bone. A towel clamp was used too stabilize the 4th digit. Next using a #15, soft tissue was freed from the periosteum until the proximal phalanx was exposed distally. Next using a sagittal saw, the distal 2/3 of 4th digit proximal phalanx was resected and passed from the operative field to be sent to pathology. Using a fresh #15 blade, all necrotic and non-viable tissue was then excisionally debrided from surgical site. The wound was then copiously flushed using a bulb syringe. Deep cultures were taken during this time. Skin edges were reapproximated using 2-0 prolene in simple suture technique. Surgical site was dressed with betadine soaked adaptic, dsd and kerlix Estimated Blood Loss: 2 Complications: none Specimen: left 4th digit bone and soft tissue Discharge & Condition: Postoperative Condition: The patient tolerated the local anesthesia and procedure well and was escorted to the recovery room with neurovascular status intact to the right foot. Patient will remain in house and podiatry will continue to follow. Upon discharge, patient is to follow up with Dr. Ji within one week.
--- NOTE | 2017-11-01 00:47 | PN ---
DATE: 10/31/2017 SUBJECTIVE: The patient is in bed, in no acute distress, nontoxic. PHYSICAL EXAMINATION: VITAL SIGNS: Temperature is 97, blood pressure is 150/70, respiratory rate of 20, heart rate of 68. HEENT: Unremarkable. NECK: Supple. LUNGS: Have decreased breath sounds. HEART: Normal S1, S2. ABDOMEN: Soft, nontender. LABORATORY EXAMINATION: Reveals a white count of 8.6, hemoglobin of 10. Chemistries are noted. Microbiology reveals MRSA and pathology reports reveals the margins are free of osteomyelitis. ASSESSMENT AND PLAN: A 67-year-old female seen earlier this morning with left foot osteomyelitis with methicillin-resistant Staphylococcus aureus, status post amputation with Charcot's foot, hypertension, obesity; but if the pathology is resection margins are clear of inflammation, a short course of Zyvox times seven days. Cedrick Ramírez MD
--- NOTE | 2017-11-02 08:16 | DS ---
ADMITTING DIAGNOSIS: Osteomyelitis of the left fourth toe. DISCHARGE DIAGNOSIS: Osteomyelitis of the left fourth toe, status post amputation. SECONDARY DIAGNOSES: Non-insulin dependent diabetes mellitus, hypertension, hyperlipidemia, coronary artery disease status post percutaneous coronary intervention with stent placement and anxiety disorder. CONSULTATIONS: Dr. Ramírez (Infectious Disease), Dr. Ji (Podiatry) and Dr. Pearce (Cardiology). IMAGING STUDIES: 1. Chest x-ray demonstrated no active disease. 2. X-ray of the left foot demonstrated bony destruction of the fourth distal phalanx consistent with osteomyelitis. DIAGNOSTIC STUDIES: Lower extremity [place] exam demonstrated relatively normal study. PROCEDURES: Amputation of the left fourth toe. HISTORY OF PRESENT ILLNESS: The patient is a 67-year-old woman with a past medical history of NIDDM who was sent to the ED by Dr. Ji for evaluation of a chronic nonhealing left foot ulcer with an outpatient x-ray demonstrating findings concerning for osteomyelitis. The patient has been closely followed by Dr. Ji for continued management of diabetic foot ulcers and over the course of the past two weeks, she was found to have increasing erythema and purulent discharge from the base of her left fourth toe respond to outpatient antimicrobial therapy consisting of Bactrim. As such, she was sent for an x-ray, which demonstrated findings consistent with osteomyelitis. A subsequent MRI confirmed the osteomyelitis and as such, the patient was sent to the ED for intravenous antibiotics and surgical intervention. HOSPITAL COURSE: Upon admission to the general medical estevez, the patient was evaluated by Dr. Ramírez and was initially maintained off antibiotics pending operative cultures. After medical optimization and cardiac clearance, the patient was taken to the OR where she successfully underwent amputation of the left fourth toe. Cultures from the OR grew MRSA and as such, the patient was placed on vancomycin, which was later changed to Zyvox. After the pathology report confirmed clear margins, the patient was advised that she will only need a short course of antibiotics and recommendations were made for Zyvox for a 7-day course. The patient's postprocedure course and the remainder of her hospital stay were uncomplicated and she was noted to ambulate around the medical estevez without difficulty and by hospital day #7, she was cleared for discharge to home. CONDITION: Good, improved. DISPOSITION: Home. DISCHARGE MEDICATIONS: Aspirin 81 mg p.o. daily, Plavix 75 mg p.o. daily, Lipitor 40 mg p.o. daily, metoprolol 25 mg p.o. b.i.d., glipizide 5 mg p.o. daily, Xanax 0.25 mg p.o. daily and Zyvox 600 mg p.o. b.i.d.(to complete a 7-day course). DISCHARGE INSTRUCTIONS: The patient was advised that if she develops any fevers, chills, rigors, malaise, increasing erythema, warmth or discharge from her surgical site, to present to her PMD or to the nearest ED immediately. The patient was also advised to adhere to postsurgical instructions and weightbearing instructions as per Dr. Ji. FOLLOWUP: The patient is to follow up with her PMD as scheduled. The patient is to follow up with Dr. Ji as scheduled. Atul Mckeon MD
== END 2017-10-31 18:03 | disposition home or self-care (01) | DRG 617 ==
LOC: ED 09:42 → ERH 13:41 → 5RNO 15:10
PROVIDERS: ADMIT Student in an Organized Health Care Education/Training Program; ATTEND Student in an Organized Health Care Education/Training Program
PROC: 0Y6W0Z1 Detachment at Left 4th Toe, High, Open Approach (ICD-10-PCS; principal; 2017-10-26 09:00)
DX: E11.69 Type 2 diabetes mellitus with other specified complication (principal); M86.172 Other acute osteomyelitis, left ankle and foot; E11.621 Type 2 diabetes mellitus with foot ulcer; L97.519 Non-pressure chronic ulcer of other part of right foot with unspecified severity; L97.529 Non-pressure chronic ulcer of other part of left foot with unspecified severity; E11.610 Type 2 diabetes mellitus with diabetic neuropathic arthropathy; M14.671 Charcot's joint, right ankle and foot; M14.672 Charcot's joint, left ankle and foot; L03.032 Cellulitis of left toe; E11.51 Type 2 diabetes mellitus with diabetic peripheral angiopathy without gangrene; E11.42 Type 2 diabetes mellitus with diabetic polyneuropathy; B95.62 Methicillin resistant Staphylococcus aureus infection as the cause of diseases classified elsewhere; I25.118 Atherosclerotic heart disease of native coronary artery with other forms of angina pectoris; I10 Essential (primary) hypertension; E78.5 Hyperlipidemia, unspecified; F41.9 Anxiety disorder, unspecified; G51.0 Bell's palsy; E78.00 Pure hypercholesterolemia, unspecified; D64.9 Anemia, unspecified; E66.9 Obesity, unspecified; Z68.32 Body mass index [BMI] 32.0-32.9, adult; Z78.9 Other specified health status; S80.12XA Contusion of left lower leg, initial encounter; W10.9XXA Fall (on) (from) unspecified stairs and steps, initial encounter; Y92.009 Unspecified place in unspecified non-institutional (private) residence as the place of occurrence of the external cause; Z95.5 Presence of coronary angioplasty implant and graft; Z79.02 Long term (current) use of antithrombotics/antiplatelets; Z79.82 Long term (current) use of aspirin